=== PATIENT | female | born 1955 | race Caucasian/White ===

== ENCOUNTER → 2019-02-08 | Outpatient (CLI) | payer BC ==
--- NOTE | 2019-02-08 17:18 | CT ---
EXAMINATION TYPE: CT abdomen w con DATE OF EXAM: 02/08/2019 COMPARISON: 02/24/2010 HISTORY: abdominal pain CT DLP: 993 mGycm Automated exposure control for dose reduction was used. TECHNIQUE: Helical acquisition of images was performed from the lung bases through the top of iliac crest to include entire abdomen. CONTRAST: Performed with Oral Contrast and with IV Contrast, patient injected with 100 mL of Isovue 300. FINDINGS: There is dense calcification of the pericardium. Heart size is normal. Lung bases are clear of infilt rate. There is no pleural effusion. There is left side breast implant. Liver spleen pancreas gallbladder appear normal. Bile ducts are not dilated. There is no adrenal mass . Stomach appears normal. Kidneys show satisfactory contrast opacification. There is no hydronephrosi s. Ureters are not dilated. There is no retroperitoneal adenopathy. Appendix appears normal. There is no ascites. There is no mesenteric edema. There is no intestinal wall thickening. IMPRESSION: THERE IS DENSE PERICARDIAL CALCIFICATION AT HAS PROGRESSED COMPARED TO OLD CT SCAN. NO ACUTE ABNORMAL ITY WITHIN THE ABDOMEN AND PELVIS.
== END ==
LOC: RADCTMAIN 15:42
PROVIDERS: ATTEND Nurse Practitioner Family
DX: I31.1 Chronic constrictive pericarditis (principal)
CPT/HCPCS: 74160; Q9967

== ENCOUNTER → 2019-02-14 | Outpatient (CLI) | payer BC ==
--- NOTE | 2019-02-14 14:11 | US ---
EXAMINATION TYPE: US pelvic complete DATE OF EXAM: 02/14/2019 COMPARISON: CT CLINICAL HISTORY: R10.2 Pelvic Pain. Intermittent midline and lateral pelvic pain x 3 weeks; history of Breast CA; uterus and one ovary removed TECHNIQUE: Transabdominal (TA). Transabdominal sonographic images of the pelvis were acquired. EXAM MEASUREMENTS: Uterus: surgically removed Right Ovary: 3.0x 1.6 x1.7 cm Left Ovary: not seen/surgically absent 1. Right Ovary: wnl 2. Bladder: appears wnl; bilateral ureteral jets are seen; post void volume is wnl = 16.2ml 3. Bilateral Adnexa: overlying bowel gas is noted especially left lateral pelvis 4. Posterior cul-de-sac: wnl; no free fluid is seen in bilateral lower abdominal /pelvic quadrants. IMPRESSION: No free fluid in pelvic cul-de-sac. Normal appearing right ovary identified. No suspiciou s adnexal masses seen. Incidental fatty infiltration of liver towards end of study.
== END | disposition home or self-care (01) ==
LOC: RADUSWWP 13:19
PROVIDERS: ATTEND Internal Medicine
DX: R10.2 Pelvic and perineal pain (principal)
CPT/HCPCS: 76856

== ENCOUNTER → 2019-03-15 | Outpatient (CLI) | payer BC ==
--- NOTE | 2019-03-15 11:45 | NM ---
EXAMINATION TYPE: NM hepatobiliary w EF DATE OF EXAM: 03/15/2019 COMPARISON: CT abdomen February 08, 2019. HISTORY: Abdominal pain per order. Right upper quadrant pain for one month with diminished appetite, heartburn, reflux, diarrhea, and nausea and vomiting all per patient. TECHNIQUE: After the intravenous administration of 4.5 mCi Tc 99m Mebrofenin hepatobiliary scintigrap hy is performed. Immediate images post injection. FINDINGS: There is satisfactory initial accumulation of tracer by the liver. The gallbladder is visualized wit hin 10 minutes. The small bowel activity is noted within 25 minutes. At one hour 8 ounces of oral e nsure plus is given to mimic CCK and gallbladder ejection fraction is calculated at 84 %, not deviate d from the the normal range. Therefore there is no scintigraphic evidence of cystic or common bile d uct obstruction to suggest acute cholecystitis or gallbladder dyskinesia. IMPRESSION: Ejection fraction is 84%, not diminished from the normal range.
== END | disposition home or self-care (01) ==
LOC: RADNMMAIN 08:35
PROVIDERS: ATTEND Internal Medicine
DX: R10.9 Unspecified abdominal pain (principal)
CPT/HCPCS: 78226; A9537

== ENCOUNTER 2019-04-17 17:28 | Observation (INO) | payer BC ==
[2019-04-17] MEDS ORDERED: NITROGLYCERIN OINT 1 INCH/GM PACKET TOPICAL STA (18:26)
[2019-04-17] MEDS ORDERED: ASPIRIN 81 MG PO STA (18:26)
--- NOTE | 2019-04-17 18:35 | ED ---
General Adult HPI - General Chief complaint: Chest Pain Stated complaint: chest pain Time Seen by Provider: 04/17/19 17:40 Source: patient, RN notes reviewed Mode of arrival: ambulatory Limitations: no limitations - History of Present Illness Initial comments: This is a 63-year-old female presents emergency Department complaining of left- sided chest pain. Patient states it occurred twice yesterday each time lasting approximately 5 minutes.. Patient states it's just above her left breast. Patient states today the pain is a little worse and radiating to her armpit and her shoulder and neck area. She states again it's only lasting about 5 minutes per patient denies any shortness of breath or difficulty breathing. She denies any nausea or vomiting. Patient denies any diaphoretic episodes. Patient denies any lightheadedness or dizziness. Patient denies any headache patient denies numbness weakness per patient denies abdominal pain patient denies any recent fever chills or cough. Patient denies any swelling to her legs or calf tenderness. Patient states currently there is no pain patient is a diabetic and has high cholesterol. - Related Data Home Medications Medication Instructions Recorded Confirmed Dulaglutide [Trulicity] 1.5 mg SQ ACEVES 04/17/19 04/17/19 Rosuvastatin Calcium [Crestor] 40 mg PO HS 04/17/19 04/17/19 sitaGLIPtin PHOS/metFORMIN HCL 1 tab PO HS 04/17/19 04/17/19 [Janumet Xr 100-1,000 mg Tablet] Allergies Allergy/AdvReac Type Severity Reaction Status Date / Time hydromorphone HCl Allergy Hallucinati Verified 04/17/19 18:32 [From Dilaudid] ons codeine AdvReac Nausea Verified 04/17/19 18:32 TEGADERM Allergy Rash/Hives Uncoded 04/17/19 18:32 Review of Systems ROS Statement: Those systems with pertinent positive or pertinent negative responses have been documented in the HPI. ROS Other: All systems not noted in ROS Statement are negative. Past Medical History Past Medical History: Cancer, Diabetes Mellitus History of Any Multi-Drug Resistant Organisms: MRSA Date of last positivie culture/infection: 2011 MDRO Source:: ABDOMEN Past Surgical History: Breast Surgery, Hysterectomy Additional Past Surgical History / Comment(s): LEFT MASTECTOMY Past Psychological History: No Psychological Hx Reported Smoking Status: Former smoker General Exam - General Exam Comments Initial Comments: GENERAL: Patient is well-developed and well-nourished. Patient is nontoxic and well- hydrated and is in mild distress. ENT: Neck is soft and supple. No significant lymphadenopathy is noted. Oropharynx is clear. Moist mucous membranes. Neck has full range of motion without elici ting any pain. EYES: The sclera were anicteric and conjunctiva were pink and moist. Extraocular movements were intact and pupils were equal round and reactive to light. Eyelids were unremarkable. PULMONARY: Unlabored respirations. Good breath sounds bilaterally. No audible rales rhonchi or wheezing was noted. CARDIOVASCULAR: There is a regular rate and rhythm without any murmurs gallops or rubs. ABDOMEN: Soft and nontender with normal bowel sounds. No palpable organomegaly was noted . There is no palpable pulsatile mass. SKIN: Skin is clear with no lesions or rashes and otherwise unremarkable. NEUROLOGIC: Patient is alert and oriented x3. Cranial nerves II through XII are grossly intact. Motor and sensory are also intact. Normal speech, volume and content. Symmetrical smile. MUSCULOSKELETAL: Normal extremities with adequate strength and full range of motion. No lower extremity swelling or edema. No calf tenderness. LYMPHATICS: No significant lymphadenopathy is noted PSYCHIATRIC: Normal psychiatric evaluation. Limitations: no limitations Course Vital Signs 04/17/19 04/17/19 17:40 18:49 Temperature 98.2 F Pulse Rate 70 67 Respiratory 16 18 Rate Blood Pressure 162/93 160/83 O2 Sat by Pulse 98 98 Oximetry Medical Decision Making - Medical Decision Making EKG shows normal sinus rhythm at 67 bpm VT interval 170 QRS is 80 QT interval 408 QTC is 431 per patient's EKG shows no ST segment elevation or depression or T wave abnormalities are noted. Chest shows no acute abnormality. Patient continued to have intermittent chest pain in the emergency department last approximate 5 minutes. Rhythm strip showed no changes while patient was having the pain. I spoke with Dr. Newell he agreed to admit the patient admitted the patient I wrote admitting orders. I consult cardiology. - Lab Data Result diagrams: 04/17/19 18:44 04/17/19 18:44 Lab Results 04/17/19 04/17/19 04/17/19 Range/Units 18:44 18:44 18:44 WBC 8.7 (3.8-10.6) k/uL RBC 4.73 (3.80-5.40) m/uL Hgb 13.9 (11.4-16.0) gm/dL Hct 45.0 (34.0-46.0) % MCV 95.2 (80.0-100.0) fL MCH 29.5 (25.0-35.0) pg MCHC 31.0 (31.0-37.0) g/dL RDW 12.9 (11.5-15.5) % Plt Count 232 (150-450) k/uL Neutrophils % 57 % Lymphocytes % 30 % Monocytes % 6 % Eosinophils % 4 % Basophils % 1 % Neutrophils # 5.0 (1.3-7.7) k/uL Lymphocytes # 2.6 (1.0-4.8) k/uL Monocytes # 0.5 (0-1.0) k/uL Eosinophils # 0.4 (0-0.7) k/uL Basophils # 0.1 (0-0.2) k/uL PT 9.7 (9.0-12.0) sec INR 0.9 (<1.2) APTT 22.8 (22.0-30.0) sec Sodium 140 (137-145) mmol/L Potassium 4.0 (3.5-5.1) mmol/L Chloride 103 (98-107) mmol/L Carbon Dioxide 27 (22-30) mmol/L Anion Gap 10 mmol/L BUN 12 (7-17) mg/dL Creatinine 0.58 (0.52-1.04) mg/dL Est GFR (CKD-EPI)AfAm >90 (>60 ml/min/1.73 sqM) Est GFR (CKD-EPI)NonAf >90 (>60 ml/min/1.73 sqM) Glucose 114 H (74-99) mg/dL Calcium 10.2 (8.4-10.2) mg/dL Magnesium 2.2 (1.6-2.3) mg/dL Total Bilirubin 0.4 (0.2-1.3) mg/dL AST 34 (14-36) U/L ALT 45 (9-52) U/L Alkaline Phosphatase 105 (38-126) U/L Troponin I (0.000-0.034) ng/mL Total Protein 7.5 (6.3-8.2) g/dL Albumin 4.7 (3.5-5.0) g/dL 04/17/19 Range/Units 18:44 WBC (3.8-10.6) k/uL RBC (3.80-5.40) m/uL Hgb (11.4-16.0) gm/dL Hct (34.0-46.0) % MCV (80.0-100.0) fL MCH (25.0-35.0) pg MCHC (31.0-37.0) g/dL RDW (11.5-15.5) % Plt Count (150-450) k/uL Neutrophils % % Lymphocytes % % Monocytes % % Eosinophils % % Basophils % % Neutrophils # (1.3-7.7) k/uL Lymphocytes # (1.0-4.8) k/uL Monocytes # (0-1.0) k/uL Eosinophils # (0-0.7) k/uL Basophils # (0-0.2) k/uL PT (9.0-12.0) sec INR (<1.2) APTT (22.0-30.0) sec Sodium (137-145) mmol/L Potassium (3.5-5.1) mmol/L Chloride (98-107) mmol/L Carbon Dioxide (22-30) mmol/L Anion Gap mmol/L BUN (7-17) mg/dL Creatinine (0.52-1.04) mg/dL Est GFR (CKD-EPI)AfAm (>60 ml/min/1.73 sqM) Est GFR (CKD-EPI)NonAf (>60 ml/min/1.73 sqM) Glucose (74-99) mg/dL Calcium (8.4-10.2) mg/dL Magnesium (1.6-2.3) mg/dL Total Bilirubin (0.2-1.3) mg/dL AST (14-36) U/L ALT (9-52) U/L Alkaline Phosphatase (38-126) U/L Troponin I <0.012 (0.000-0.034) ng/mL Total Protein (6.3-8.2) g/dL Albumin (3.5-5.0) g/dL Disposition Clinical Impression: Chest pain Disposition: ADMITTED IP TO THIS [facility] Referrals: Heather Newell MD [Primary Care Provider] - 1-2 days Time of Disposition: 19:31
[2019-04-17 18:57] LABS: Basophils # (A) 0.1 k/uL (0-0.2); Basophils % (A) 1 %; Eosinophils # (A) 0.4 k/uL (0-0.7); Eosinophils % (A) 4 %; HGB 13.9 gm/dL (11.4-16.0); Lymphocytes # (A) 2.6 k/uL (1.0-4.8); Lymphocytes % (A) 30 %; MCH 29.5 pg (25.0-35.0); MCV 95.2 fL (80.0-100.0); Mean Platelet Volume 8.2; Monocytes # (A) 0.5 k/uL (0-1.0); Monocytes % (A) 6 %; Neutrophils % (A) 57 %; Platelet Count 232 k/uL (150-450); RBC 4.73 m/uL (3.80-5.40); RDW 12.9 % (11.5-15.5); WBC 8.7 k/uL (3.8-10.6)
[2019-04-17 19:10] LABS: INR 0.9 (<1.2); Partial Thromboplastin Time 22.8 sec (22.0-30.0); Prothrombin Time 9.7 sec (9.0-12.0)
[2019-04-17 19:14] LABS: ALT 45 U/L (9-52); AST 34 U/L (14-36); African American GFR (CKD) >90 (>60 ml/min/1.73 sqM); Albumin 4.7 g/dL (3.5-5.0); Alkaline Phosphatase 105 U/L (38-126); Anion Gap 10 mmol/L; Blood Urea Nitrogen 12 mg/dL (7-17); Calcium 10.2 mg/dL (8.4-10.2); Carbon Dioxide 27 mmol/L (22-30); Chloride 103 mmol/L (98-107); Glucose 114 mg/dL (74-99); Magnesium 2.2 mg/dL (1.6-2.3); Sodium 140 mmol/L (137-145); Total Bilirubin 0.4 mg/dL (0.2-1.3); Total Protein 7.5 g/dL (6.3-8.2)
[2019-04-17] MEDS ORDERED: NITROGLYCERIN SL TABS 0.4 MG TAB SUBLINGUAL PRN (19:32)
--- NOTE | 2019-04-17 20:03 | XR ---
EXAMINATION TYPE: XR chest 2V DATE OF EXAM: 04/17/2019 COMPARISON: 12/08/2011 INDICATION: Chest pain TECHNIQUE: Frontal and lateral views of the chest are obtained. FINDINGS: The heart size is normal. The pulmonary vasculature is normal. The lungs are clear. Some pericardial calcification may remain present. IMPRESSION: 1. No acute pulmonary process.
[2019-04-18] MEDS: NITROGLYCERIN OINT 1 INCH/GM PACKET TOPICAL SCH ×5 (01:28→23:10)
[2019-04-18 08:02] LABS: Cholesterol 196 mg/dL (<200); HDL Cholesterol 81 mg/dL (40-60); LDL Cholesterol,Calculated 75 mg/dL (0-99); Triglycerides 201 mg/dL (<150)
[2019-04-18] MEDS ORDERED: ASPIRIN 325 MG TAB PO SCH (09:00)
[2019-04-18] MEDS ORDERED: AMINOPHYLLINE 500 MG/20 ML VIAL IV PRN ×2 (09:02→09:58)
[2019-04-18] MEDS ORDERED: CAFFEINE CITRATE 60 MG/3 ML VIAL IV PRN ×2 (09:02→09:58)
[2019-04-18] MEDS ORDERED: DIPYRIDAMOLE IV ONE ×2 (09:30→09:58)
[2019-04-18] MEDS ORDERED: DOBUTamine DRIP for NUC MED 500 MG in DEXTROSE/WATER 1 250ML.BAG IV ONE (09:30)
[2019-04-18] MEDS ORDERED: SODIUM CHLORIDE 0.9% IV ONE ×2 (09:30→09:58)
[2019-04-18 11:17] LABS: Glucose,Whole Blood 134 mg/dL (75-99)
[2019-04-18] MEDS: INSULIN ASPART (NovoLOG) 100 UNIT/ML VIAL SQ SCH ×3 (12:23→20:32)
[2019-04-18 13:07] VITALS: RESP 18
--- NOTE | 2019-04-18 13:49 | P.CRDCN ---
History of Present Illness History of present illness: This is a pleasant 63-year-old female past medical history significant for diabetes mellitus, dyslipidemia, breast cancer status post mastectomy and implantation. She denies prior history of coronary artery disease. She has seen Dr. Kathleen in the past and undergone stress testing and echocardiogram in 2016, both Lexiscan stress test and echocardiogram are normal with no evidence of reversible ischemia and normal LV systolic function. We have been asked to see her in consultation secondary to chest discomfort. She has been experiencing a burning sensation in the midsternal region since Wednesday. At times the discomfort radiates to the left precordial region to the left axilla and the left shoulder. There is no discomfort in the arm, neck or jaw. Initially this lasted for about 5 minutes and then slowly seemed to subside on its own. Was not associated with activity or exertion. It is not related to deep inspiration. Then again yesterday she had a similar type symptom prompting her to come to the hospital for further evaluation. Seen and examined sitting up on the stretcher in the emergency department in no acute distress. She has had no further symptoms of chest discomfort. EKG reveals sinus mechanism nonspecific flattened T waves with no acute ST meng ges. Chest x-ray is negative for an acute cardiopulmonary process. Laboratory data reviewed, CBC unremarkable, sodium 140, potassium 4.0, creatinine 0.58 with a GFR greater than 90, cardiac enzymes negative 3, LDL 75. Current cardiac medications include rosuvastatin 40 mg daily. At the time of my exam: CONSTITUTIONAL: Denies fever. Denies chills. EYES: Denies blurred vision. Denies vision changes. Denies eye pain. EARS, NOSE, MOUTH & THROAT: Denies headache. Denies sore throat. Denies ear pain . CARDIOVASCULAR: Denies chest pain. Denies shortness of breath. Denies orthopnea. Denies PND. Denies palpitations. RESPIRATORY: Denies cough. GASTROINTESTINAL: Denies abdominal pain. Denies diarrhea. Denies constipation. Denies nausea. Denies vomiting. MUSCULOSKELETAL: Denies myalgias. INTEGUMENTARY: Denies pruitis. Denies rash. NEUROLOGIC: Denies numbness. Denies tingling. Denies weakness. PSYCHIATRIC: Denies anxiety. Denies depression. ENDOCRINE: Denies fatigue. Denies weight change. Denies polydipsia. Denies polyurina. GENITOURINARY: Denies burning, hematuria or urgency with micturation. HEMATOLOGIC: Denies history of anemia. Denies bleeding. Blood pressure 135/74 heart rate 71 afebrile maintaining oxygen saturation on room air. GENERAL: This is a 63-year-old female in no apparent distress at the time of my examination. HEENT: Head is atraumatic, normocephalic. Pupils are equal, round. Sclerae anicteric. Conjunctivae are clear. Mucous membranes of the mouth are moist. Neck is supple. There is no jugular venous distention. No carotid bruit is heard. LUNGS: Clear to auscultation no wheezes, rales or rhonchi. No chest wall tenderness is noted on palpation or with deep breathing. HEART: Regular rate and rhythm without murmurs, rubs or gallops. S1 and S2 heard. ABDOMEN: Soft, nontender. Bowel sounds are heard. No organomegaly noted. EXTREMITIES: No evidence of peripheral edema and no calf tenderness noted. VASCULAR: Radial and dorsalis pedis pulses palpated, no evidence of clubbing. NEUROLOGIC: Patient is awake, alert and oriented x3. ASSESSMENT Precordial chest pain. An acute coronary event has been ruled out. Diabetes mellitus Dyslipidemia History of breast cancer status post mastectomy and implant PLAN An acute coronary event has been ruled out. Given her symptoms and risk factors we recommend inpatient stress testing. Recommend proceeding with Persantine stress test to assess for reversible cardiac ischemia, unfortunately she was given coffee this morning cannot have the study done today. She is not a candidate for dobutamine stress echocar diogram secondary to mastectomy and implantation. 2-D echocardiogram has been obtained and study was limited secondary to mastectomy/implant. Further recommendations to follow. Thank you kindly for this consultation. Nurse Practitioner note has been reviewed, I agree with a documented findings and plan of care. Patient was seen and examined. Past Medical History Past Medical History: Cancer, Diabetes Mellitus History of Any Multi-Drug Resistant Organisms: MRSA Date of last positivie culture/infection: 2011 MDRO Source:: ABDOMEN Past Surgical History: Breast Surgery, Hysterectomy Additional Past Surgical History / Comment(s): LEFT MASTECTOMY Past Psychological History: No Psychological Hx Reported Smoking Status: Former smoker Medications and Allergies Home Medications Medication Instructions Recorded Confirmed Type Dulaglutide [Trulicity] 1.5 mg SQ ACEVES 04/17/19 04/17/19 History Rosuvastatin Calcium [Crestor] 40 mg PO HS 04/17/19 04/17/19 History sitaGLIPtin PHOS/metFORMIN HCL 1 tab PO HS 04/17/19 04/17/19 History [Janumet Xr 100-1,000 mg Tablet] Allergies Allergy/AdvReac Type Severity Reaction Status Date / Time hydromorphone HCl Allergy Hallucinati Verified 04/17/19 18:32 [From Dilaudid] ons codeine AdvReac Nausea Verified 04/17/19 18:32 TEGADERM Allergy Rash/Hives Uncoded 04/17/19 18:32 Physical Exam Vitals: Vital Signs Temp Pulse Pulse Resp BP BP Pulse Ox 04/18/19 13:05 97.5 F L 71 18 135/74 97 04/18/19 06:54 98.2 F 75 20 147/81 98 04/18/19 01:12 98.0 F 68 18 116/82 98 04/17/19 22:42 70 18 127/74 98 04/17/19 20:06 64 18 130/74 98 04/17/19 18:49 67 18 160/83 98 04/17/19 17:40 98.2 F 70 16 162/93 98 Intake and Output 04/17/19 04/18/19 04/18/19 22:59 06:59 14:59 Other: Weight 66.678 kg Results 04/17/19 18:44 04/17/19 18:44 Cardiac Enzymes 04/17/19 04/17/19 04/18/19 Range/Units 18:44 18:44 00:21 AST 34 (14-36) U/L Troponin I <0.012 <0.012 (0.000-0.034) ng/mL 04/18/19 Range/Units 07:13 AST (14-36) U/L Troponin I <0.012 (0.000-0.034) ng/mL Coagulation 04/17/19 Range/Units 18:44 PT 9.7 (9.0-12.0) sec APTT 22.8 (22.0-30.0) sec Lipids 04/18/19 Range/Units 07:13 Triglycerides 201 H (<150) mg/dL Cholesterol 196 (<200) mg/dL HDL Cholesterol 81 H (40-60) mg/dL CBC 04/17/19 Range/Units 18:44 WBC 8.7 (3.8-10.6) k/uL RBC 4.73 (3.80-5.40) m/uL Hgb 13.9 (11.4-16.0) gm/dL Hct 45.0 (34.0-46.0) % Plt Count 232 (150-450) k/uL Comprehensive Metabolic Panel 04/17/19 Range/Units 18:44 Sodium 140 (137-145) mmol/L Potassium 4.0 (3.5-5.1) mmol/L Chloride 103 (98-107) mmol/L Carbon Dioxide 27 (22-30) mmol/L BUN 12 (7-17) mg/dL Creatinine 0.58 (0.52-1.04) mg/dL Glucose 114 H (74-99) mg/dL Calcium 10.2 (8.4-10.2) mg/dL AST 34 (14-36) U/L ALT 45 (9-52) U/L Alkaline Phosphatase 105 (38-126) U/L Total Protein 7.5 (6.3-8.2) g/dL Albumin 4.7 (3.5-5.0) g/dL Current Medications Generic Name Dose Route Start Last Admin Trade Name Freq PRN Reason Stop Dose Admin Aminophylline 100 mg 04/18/19 09:58 Aminophylline IV 05/18/19 09:59 ONCE PRN Patient Response Aspirin 81 mg 04/19/19 09:00 Aspirin PO DAILY [facility] Atorvastatin Calcium 80 mg 04/18/19 21:00 Lipitor PO HS [facility] Caffeine Citrate 60 mg 04/18/19 09:58 Cafcit Inj IV 05/18/19 09:59 ONCE PRN Patient Response Dipyridamole 38 mg/ Sodium 50 mls @ 750 mls/hr 04/19/19 06:00 Chloride IV 04/19/19 06:03 ONCE ONE Insulin Aspart 0 unit 04/18/19 12:30 04/18/19 12:23 Novolog SQ Not Given ACHS [facility] Protocol Linagliptin 5 mg 04/19/19 09:00 Tradjenta PO DAILY [facility] Nitroglycerin 0.4 mg 04/17/19 19:32 Nitrostat SUBLINGUAL Q5M PRN Chest Pain Nitroglycerin 1 inch 04/18/19 00:00 04/18/19 06:53 Nitro-Bid Oint TOPICAL 1 inch Q6HR DUONG Administration Intake and Output 04/17/19 04/18/19 04/18/19 22:59 06:59 14:59 Other: Weight 66.678 kg 04/17/19 18:44 04/17/19 18:44
[2019-04-18 14:02] VITALS: BMI 28.7
--- NOTE | 2019-04-18 16:07 | P.HPIM ---
History of Present Illness H&P Date: 04/18/19 Chief Complaint: Chest pain This is a 63-year-old female patient of Dr. Newell with past medical history of diabetes mellitus type 2, hyperlipidemia, left breast cancer status post mastectomy 8 years ago without chemo therapy/radiation therapy. Patient states that she had onset on Wednesday of heartburn. She woke up with this and then developed later in the day fluttering feelings. She had a burning and tightness in the left upper chest wall and thought it was due to vacuuming. It was intermittent but continued into Wednesday. She called the office it was after hours and she called her who told her to come into the hospital for evaluation. She hasn't had a stress test [address] Kathleen that was reported normal. Patient gives history of having trouble with Trulicity due to a rash and was switched to insulin however she gained 30 pounds with the insulin and did not want to continue it. She has been resumed back on [facility] but now rash has returned. Also she has had elevated pancreatic numbers in the office which are being monitored. Since midnight she has had no chest pain. She thinks it may be related to the Nitropaste but is not sure. Patient does have partial implant and partial muscle transplant from her abdomen for left breast reconstruction which she feels has been giving her some trouble and pain in the left chest area. Troponins negative on 3 draws. Triglycerides 201, cholesterol 196, LDL 75 and HDL 81. Patient has been seen by cardiology and echocardiogram has been done and patient scheduled for nuclear stress test for tomorrow. Review of Systems Constitutional: Reports fatigue, Denies chills, Denies fever, Denies lethargy, Denies malaise, Denies poor appetite Eyes: denies blurred vision, denies pain Ears, nose, mouth and throat: Reports vertigo, Denies dysphagia, Denies headache, Denies nasal congestion, Denies nasal discharge, Denies sore throat Cardiovascular: Reports chest pain, Denies decreased exercise tolerance, Denies dyspnea on exertion, Denies edema, Denies leg edema, Denies lightheadedness, Denies shortness of breath, Denies syncope Respiratory: Denies cough, Denies cough with sputum, Denies dyspnea, Denies excessive sputum, Denies hemoptysis, Denies home oxygen, Denies respiratory infections, Denies sleep apnea, Denies wheezing Gastrointestinal: Denies abdominal pain, Denies belching, Denies bloating, Denies diarrhea, Denies loss of appetite, Denies nausea, Denies vomiting Genitourinary: Denies dysuria, Denies hematuria, Denies urgency, Denies urinary frequency Musculoskeletal: Denies frequent falls, Denies gait dysfunction, Denies muscle weakness, Denies myalgias Integumentary: Reports rash, Denies pruritus, Denies wounds Neurological: Denies change in mentation, Denies confusion, Denies numbness, Denies weakness Psychiatric: Denies anxiety, Denies confusion, Denies depression Endocrine: Denies fatigue, Denies weight change Past Medical History Past Medical History: Cancer, Diabetes Mellitus History of Any Multi-Drug Resistant Organisms: MRSA Date of last positivie culture/infection: 2011 MDRO Source:: ABDOMEN Past Surgical History: Breast Surgery, Hysterectomy Additional Past Surgical History / Comment(s): LEFT MASTECTOMY, history for abnormal bleeding, 3 hernia repairs Past Psychological History: No Psychological Hx Reported Smoking Status: Former smoker Additional Past Alcohol Use History / Comment(s): Patient was a smoker of less than one pack per day for 10 years and quit 15 years ago. She denies any marijuana or illicit drug use. She drinks alcohol socially. She lives at home with her . She works in [employer]. - Past Family History Father Family Medical History: Diabetes Mellitus, Myocardial Infarction (PA) Additional Family Medical History / Comment(s): Father of a PA in his 70s. Mother Family Medical History: No Reported History Additional Family Medical History / Comment(s): Mother is 85 years old with history of thyroid cancer. Her mother and aunt both had breast cancer. Brother(s) Additional Family Medical History / Comment(s): Patient has 4 brothers and one has diabetes. Patient has 4 sisters and one has history of thyroid cancer. Patient has one daughter who is . Medications and Allergies Home Medications Medication Instructions Recorded Confirmed Type Dulaglutide [Trulicity] 1.5 mg SQ ACEVES 04/17/19 04/17/19 History Rosuvastatin Calcium [Crestor] 40 mg PO HS 04/17/19 04/17/19 History sitaGLIPtin PHOS/metFORMIN HCL 1 tab PO HS 04/17/19 04/17/19 History [Janumet Xr 100-1,000 mg Tablet] Allergies Allergy/AdvReac Type Severity Reaction Status Date / Time hydromorphone HCl Allergy Hallucinati Verified 04/17/19 18:32 [From Dilaudid] ons codeine AdvReac Nausea Verified 04/17/19 18:32 TEGADERM Allergy Rash/Hives Uncoded 04/17/19 18:32 Physical Exam Vitals: Vital Signs Temp Pulse Pulse Resp BP BP Pulse Ox 04/18/19 13:05 97.5 F L 71 18 135/74 97 04/18/19 06:54 98.2 F 75 20 147/81 98 04/18/19 01:12 98.0 F 68 18 116/82 98 04/17/19 22:42 70 18 127/74 98 04/17/19 20:06 64 18 130/74 98 04/17/19 18:49 67 18 160/83 98 04/17/19 17:40 98.2 F 70 16 162/93 98 Intake and Output 04/17/19 04/18/19 04/18/19 22:59 06:59 14:59 Other: Weight 66.678 kg This Gen: This is a 63-year-old female. She is resting in the ER stretcher and appears to be comfortable. HEENT: Head is atraumatic, normocephalic. Pupils equal, round. Sclerae is anicteric. NECK: Supple. No JVD. No lymphadenopathy. No thyromegaly. LUNGS: Clear to auscultation. No wheezes or rhonchi. No intercostal retractions. HEART: Regular rate and rhythm. No murmur. ABDOMEN: Soft. Bowel sounds are present. No masses. No tenderness. EXTREMITIES: No pedal edema. No calf tenderness. Dorsalis pedis +2 bilaterally. NEUROLOGICAL: Patient is awake, alert and oriented x3. Cranial nerves 2 through 12 are grossly intact. Results CBC & Chem 7: 04/17/19 18:44 04/17/19 18:44 Labs: Abnormal Lab Results - Last 24 Hours (Table) 04/17/19 04/18/19 04/18/19 Range/Units 18:44 07:13 11:15 Glucose 114 H (74-99) mg/dL POC Glucose (mg/dL) 134 H (75-99) mg/dL Triglycerides 201 H (<150) mg/dL HDL Cholesterol 81 H (40-60) mg/dL Assessment and Plan Plan: 1. Chest pain with negative troponins. Patient is scheduled for nuclear stress test tomorrow. Continue aspirin 81 mg daily, statin. 2. Diabetes mellitus type 2. Continue NovoLog scale and Tradjenta. 3. Hyperlipidemia. Continue statin. Patient placed on the observation unit. Discharge plan: Home Impression and plan of care have been directed as dictated by the signing physician. Kiana Love nurse practitioner acting as scribe for signing physician.
[2019-04-18 16:28] LABS: Glucose,Whole Blood 234 mg/dL (75-99)
--- NOTE | 2019-04-18 18:01 | ECHOF ---
Referral Reason:cp MEASUREMENTS -------- HEIGHT: 152.4 cm WEIGHT: 66.7 kg BP: RVIDd: 2.6 cm (< 3.3) IVSd: 0.8 cm (0.6 - 1.1) LVIDd: 3.5 cm (3.9 - 5.3) LVPWd: 1.5 cm (0.6 - 1.1) IVSs: 1.2 cm LVIDs: 3.0 cm LVPWs: 1.2 cm Ao Diam: 2.5 cm (2.0 - 3.7) AV Cusp: 1.7 cm (1.5 - 2.6) LA Diam: 4.1 cm (2.7 - 3.8) MV EXCURSION: 13.536 mm (> 18.000) MV EF SLOPE: 69 mm/s (70 - 150) EPSS: 0.7 cm MV E Jim: 0.40 m/s MV DecT: 132 ms MV A Jim: 0.47 m/s MV E/A Ratio: 0.84 RAP: 5.00 mmHg RVSP: 11.24 mmHg FINDINGS -------- Sinus rhythm. Pt. Has Breast inplants This was a techncally difficult study with suboptimal views, , Lumason utilized for enhancement of im ages. The left ventricular size is normal. Overall left ventricular systolic function is low-normal with, an EF between 50 - 55 %. The right ventricle is normal in size. The left atrial size is normal. The right atrial size is normal. 5.0mg OF Lumason UTLIZED: 2 OR MORE WALL SEGMENTS NOT VISUALIZED. The aortic valve is trileaflet, and appears structurally normal. No aortic stenosis or regurgitation. No mitral regurgitation. Mild tricuspid regurgitation present. Right ventricular systolic pressure is normal at < 35 mmHg. There is no evidence of pulmonary hypertension. The pulmonic valve was not well visualized. There is no pericardial effusion. CONCLUSIONS -------- 1. Sinus rhythm. 2. Pt. Has Breast inplants 3. This was a techncally difficult study with suboptimal views, , Lumason utilized for enhancement of images. 4. The left ventricular size is normal. 5. Overall left ventricular systolic function is low-normal with, an EF between 50 - 55 %. 6. The right ventricle is normal in size. 7. The left atrial size is normal. 8. The right atrial size is normal. 9. 5.0mg OF Lumason UTLIZED: 2 OR MORE WALL SEGMENTS NOT VISUALIZED. 10. The aortic valve is trileaflet, and appears structurally normal. No aortic stenosis or regurgitat ion. 11. No mitral regurgitation. 12. Mild tricuspid regurgitation present. 13. Right ventricular systolic pressure is normal at < 35 mmHg. 14. There is no evidence of pulmonary hypertension. 15. The pulmonic valve was not well visualized. 16. There is no pericardial effusion. CHICK GRADER: Sharon Fontaine RDCS
[2019-04-18 20:28] LABS: Glucose,Whole Blood 256 mg/dL (75-99)
[2019-04-18] MEDS ORDERED: ATORVASTATIN 80 MG TAB PO SCH (21:00)
[2019-04-19] MEDS ORDERED: SODIUM CHLORIDE 0.9% IV ONE ×2 (06:00→09:30)
[2019-04-19] MEDS ORDERED: DIPYRIDAMOLE IV ONE ×2 (06:00→09:30)
[2019-04-19] MEDS: NITROGLYCERIN OINT 1 INCH/GM PACKET TOPICAL SCH ×2 (06:12→12:48)
[2019-04-19 07:00] LABS: Glucose,Whole Blood 205 mg/dL (75-99)
[2019-04-19] MEDS ORDERED: ASPIRIN 81 MG PO SCH (09:00)
[2019-04-19] MEDS ORDERED: LINAGLIPTIN 5 MG TABLET PO SCH (09:00)
[2019-04-19] MEDS: INSULIN ASPART (NovoLOG) 100 UNIT/ML VIAL SQ SCH ×2 (11:17→12:49)
[2019-04-19] MEDS ORDERED: ACETAMINOPHEN TAB 325 MG TAB PO STA (11:22)
[2019-04-19 11:28] LABS: Glucose,Whole Blood 166 mg/dL (75-99)
--- NOTE | 2019-04-19 11:43 | P.STRESS ---
- Stress Test Note Stress Test Results/Findings: Exam Performed: NM stress persantine cardiolite Exam Date: 04/19/19 Reason for Exam: CHEST PAIN Height: 5 ft Weight: 66.678 kg Protocol: PERSANTINE CARDIOLITE Stage: N/A Duration of Exercise: N/A Resting Heart Rate: 63 Resting Blood Pressure: 149/78 Maximum Achieved Heart Rate: 74 Maximum Achieved Blood Pressure: 149/78 85% PMHR: N/A 100% PMHR: N/A METS: N/A Technologist Comment: Stress Test Results/Findings: This is a 63-year-old female with history of diabetes, hypercholesterolemia and smoking history, being evaluated for symptoms of chest pain, shortness of breath and palpitations. Stress data: Baseline EKG showed sinus rhythm with normal PA interval and QRS duration, and nonspecific ST-T abnormalities. Blood pressure at rest is 149/78, pulse rate of 63. A standard dose of Persantine was infused EKGs did not reveal significant changes from the baseline. Final impression: #1. Nondiagnostic Persantine stress test because of baseline EKG mollities. #2. A report on the nuclear images to be good by the radiologist.
--- NOTE | 2019-04-19 11:51 | NM ---
EXAMINATION TYPE: NM stress persantine cardiolite DATE OF EXAM: 04/19/2019 COMPARISON: NONE HISTORY: History of hypercholesteremia along with tobacco use quit 15 years ago and history of diabet es presents with chest pain difficult in breathing and palpitations TECHNIQUE: After the intravenous administration of 10.7 mCi Tc 99m Sestamibi - Cardiolite resting SP ECT images acquired 45 minutes post injection. The patient received 38.0 mg Persantine, 26.7 mCi Tc 99m Sestamibi - Stress images obtained 30 minute s post injection FINDINGS: Review of stress and rest SPECT images demonstrates no distinct perfusion abnormality. Gated analysi s shows normal wall motion with an estimated left ventricular ejection fraction of 64 %. IMPRESSION: No scintigraphic evidence for reversible ischemia.
[2019-04-19 12:16] VITALS: BP 123/60; PULSE 66; TEMP 98.2
--- NOTE | 2019-04-19 16:22 | P.DS ---
Providers Date of admission: 04/17/19 19:32 Expected date of discharge: 04/19/19 Attending physician: Heather Newell Consults: 04/17/19 19:32 Consult Physician Urgent Consulting Provider: [facility] Consult Reason/Comments: Chest pain Do you want consulting provider notified?: Yes Primary care physician: Heather Newell Hospital Course: This is a 63-year-old female patient of Dr. Newell with past medical history of diabetes mellitus type 2, hyperlipidemia, left breast cancer status post mastectomy 8 years ago without chemo therapy/radiation therapy. Patient s tates that she had onset on Wednesday of heartburn. She woke up with this and then developed later in the day fluttering feelings. She had a burning and tightness in the left upper chest wall and thought it was due to vacuuming. It was intermittent but continued into Wednesday. She called the office it was after hours and she called her who told her to come into the hospital for evaluation. She hasn't had a stress test [address] Kathleen that was reported normal. Patient gives history of having trouble with Trulicity due to a rash and was switched to insulin however she gained 30 pounds with the insulin and did not want to continue it. She has been resumed back on [facility] but now rash has returned. Also she has had elevated pancreatic numbers in the office which are being monitored. Since midnight she has had no chest pain. She thinks it may be related to the Nitropaste but is not sure. Patient does have partial implant and partial muscle transplant from her abdomen for left breast reconstruction which she feels has been giving her some trouble and pain in the left chest area. Troponins negative on 3 draws. Triglycerides 201, cholesterol 196, LDL 75 and HDL 81. Patient has been seen by cardiology and echocardiogram has been done and patient scheduled for nuclear stress test for tomorrow. 04/19: Echocardiogram revealed EF of 50-55%. Technically difficult study with suboptimal views. Mild tricuspid regurgitation, no pulmonary hypertension. Persantine stress test was negative. Patient was cleared for discharge by cardiology. Patient discharged home in stable condition. For now, patient will continue same home medications and follow-up with Dr. Newell regarding any changes to her diabetic medications. Discharge diagnoses: 1. Chest pain with negative troponins. 2. Diabetes mellitus type 2. 3. Hyperlipidemia. Discharge plan: Home Impression and plan of care have been directed as dictated by the signing physician. Kiana Love nurse practitioner acting as scribe for signing physician. Patient Condition at Discharge: Good Plan - Discharge Summary Discharge Rx Participant: No New Discharge Prescriptions: New Aspirin 81 mg PO DAILY chew Continue sitaGLIPtin PHOS/metFORMIN HCL [Janumet Xr 100-1,000 mg Tablet] 1 tab PO HS Rosuvastatin Calcium [Crestor] 40 mg PO HS Dulaglutide [Trulicity] 1.5 mg SQ ACEVES Discharge Medication List Dulaglutide [Trulicity] 1.5 mg SQ ACEVES 04/17/19 [History] Rosuvastatin Calcium [Crestor] 40 mg PO HS 04/17/19 [History] sitaGLIPtin PHOS/metFORMIN HCL [Janumet Xr 100-1,000 mg Tablet] 1 tab PO HS 04/17/19 [History] Aspirin 81 mg PO DAILY chew 04/19/19 [Rx] Follow up Appointment(s)/Referral(s): Heather Newell MD [Primary Care Provider] - 1 Week Discharge Disposition: HOME SELF-CARE
--- NOTE | 2019-04-21 11:59 | EST ---
- Stress Test Note Stress Test Results/Findings: Exam Performed: NM stress persantine cardiolite Exam Date: 04/19/19 Reason for Exam: CHEST PAIN Height: 5 ft Weight: 66.678 kg Protocol: PERSANTINE CARDIOLITE Stage: N/A Duration of Exercise: N/A Resting Heart Rate: 63 Resting Blood Pressure: 149/78 Maximum Achieved Heart Rate: 74 Maximum Achieved Blood Pressure: 149/78 85% PMHR: N/A 100% PMHR: N/A METS: N/A Technologist Comment: Stress Test Results/Findings: This is a 63-year-old female with history of diabetes, hypercholesterolemia and smoking history, being evaluated for symptoms of chest pain, shortness of breath and palpitations. Stress data: Baseline EKG showed sinus rhythm with normal MI interval and QRS duration, and nonspecific ST-T abnormalities. Blood pressure at rest is 149/78, pulse rate of 63. A standard dose of Persantine was infused EKGs did not reveal significant changes from the baseline. Final impression: #1. Nondiagnostic Persantine stress test because of baseline EKG mollities. #2. A report on the nuclear images to be good by the radiologist. ERICK
== END 2019-04-19 14:09 | disposition home or self-care (01) ==
LOC: EC 17:28 → 1SOBS 19:32
PROVIDERS: ADMIT Internal Medicine; ATTEND Internal Medicine
DX: R07.89 Other chest pain (principal); R07.2 Precordial pain; E11.9 Type 2 diabetes mellitus without complications; I07.1 Rheumatic tricuspid insufficiency; R79.89 Other specified abnormal findings of blood chemistry; E78.5 Hyperlipidemia, unspecified; E78.00 Pure hypercholesterolemia, unspecified; Z79.899 Other long term (current) drug therapy; Z87.891 Personal history of nicotine dependence; Z85.3 Personal history of malignant neoplasm of breast; Z98.82 Breast implant status; Z92.21 Personal history of antineoplastic chemotherapy; Z92.3 Personal history of irradiation; Z86.19 Personal history of other infectious and parasitic diseases; Z87.19 Personal history of other diseases of the digestive system; Z90.710 Acquired absence of both cervix and uterus; Z90.12 Acquired absence of left breast and nipple; Z98.890 Other specified postprocedural states; Z88.5 Allergy status to narcotic agent; Z91.048 Other nonmedicinal substance allergy status; Z82.49 Family history of ischemic heart disease and other diseases of the circulatory system; Z83.3 Family history of diabetes mellitus; Z80.8 Family history of malignant neoplasm of other organs or systems; Z80.3 Family history of malignant neoplasm of breast
CPT/HCPCS: 99285; 36415; 93005 ×2; 93017; 93306; 80061; 80053; 83735; 84484 ×2; 85025; 85610; 85730; 71046; 78452; G0378 ×3; A9500; J1250; J1245 ×2; Q9950

== ENCOUNTER → 2020-01-05 | Outpatient (CLI) | payer BC ==
--- NOTE | 2020-01-05 12:49 | CT ---
EXAMINATION TYPE: CT abdomen pelvis w con DATE OF EXAM: 01/05/2020 COMPARISON: 02/08/2019 HISTORY: epigastric pain, acute diverticulitis CT DLP: 616.5 mGycm Automated exposure control for dose reduction was used. CONTRAST: CT scan of the abdomen pelvis is performed with IV Contrast, patient injected with 100 mL of Isovue 3 00. FINDINGS- LUNG BASES-pericardial calcifications are seen which can be associated with constrictive pericarditis . Correlate clinically. Rest implant surgery noted.. LIVER/GB-correlate for hepatic steatosis. No gallstones.. PANCREAS- No gross abnormality is seen. SPLEEN- No gross abnormality is seen. ADRENALS- No gross abnormality is seen. KIDNEYS/BLADDER- no hydronephrosis, nephrolithiasis or renal mass. However, there is asymmetric wall thickening involving the anterior and right lateral margin of the bladder. Recommend urological consu ltation. Although this could be associated with cystitis and bladder neoplasm not excluded. BOWEL-bowel gas pattern nonspecific with retained fecal debris. No diagnostic evidence of obstructive pattern. Appendix normal. Stomach is nondistended and is mild wall thickening of the gastric antrum. . LYMPH NODES- No greater than 1cm abdominal or pelvic lymph nodes areappreciated. OSSEOUS STRUCTURES-hypertrophic and degenerative changes of the spine. Multilevel facet arthropathy. OTHER- soft tissue nodule in the right adnexa likely related to a residual ovary with evidence of pr evious hysterectomy this appears present on prior exam of 02/24/2010. Appears to be postsurgical bowen e involving the anterior abdominal wall right lower pelvis correlate clinically. Aorta of normal caliber. Atherosclerotic change of aorta and its side branches. No free fluid or free air. IMPRESSION- 1. No evidence of pancreatitis. Mild wall thickening of the gastric antrum most likely related to inc omplete distention. If there is concern for right upper quadrant pain or peptic ulcer disease\gastrit is correlate with direct visualization as clinically warranted. 2. Asymmetric bladder wall thickening as discussed above differential diagnosis includes bladder neop lasm as well as cystitis recommend urological consultation. 3. Pericardial calcification can be associated with constrictive pericarditis correlate clinically. 4. Correlate for hepatic steatosis
== END | disposition home or self-care (01) ==
LOC: RADCTMAIN 10:38
PROVIDERS: ATTEND Internal Medicine
DX: K31.89 Other diseases of stomach and duodenum (principal); N32.89 Other specified disorders of bladder
CPT/HCPCS: 74177; Q9967

== ENCOUNTER 2020-02-16 06:18 | Day surgery (SDC) | payer BC ==
[2020-02-14 15:34] VITALS: BMI 27.3
[2020-02-16] MEDS ORDERED: LACTATED RINGERS 1,000 ML IV SCH (06:23)
[2020-02-16] MEDS ORDERED: LIDOCAINE 1% (10MG/ML) FOR IV START INTRADERMA ONE (06:50)
[2020-02-16 06:59] LABS: Glucose,Whole Blood 154 mg/dL (75-99)
[2020-02-16] MEDS ORDERED: ONDANSETRON 4 MG/2 ML VIAL ONE (06:59)
[2020-02-16] MEDS ORDERED: ONDANSETRON 4 MG/2 ML VIAL IVP ONE (07:02)
[2020-02-16 07:03] VITALS: RESP 16; TEMP 97.4
[2020-02-16] MEDS ORDERED: LIDOCAINE 1% INJ 10MG/ML (20 ML MDV) ONE (07:07)
[2020-02-16] MEDS ORDERED: fentaNYL (PF) 50 MCG/ML 2 ML AMP ONE (07:07)
[2020-02-16] MEDS ORDERED: MIDAZOLAM 2 MG/2 ML VIAL ONE (07:07)
[2020-02-16] MEDS ORDERED: PROPOFOL 10 MG/ML 20 ML VIAL IV ONE (07:07)
--- NOTE | 2020-02-16 07:39 | P.PCN ---
Date of Procedure: 02/16/20 Procedure(s) Performed: Brief history: Patient is a pleasant 64-year-old white female scheduled for an elective upper endoscopy as well as colonoscopy as a part of evaluation of abdominal pain, abdominal bloating and change in bowel habits for the last 1 month duration. Pain is mostly in the right side and in the right upper quadrant radiating to the right lower quadrant area. No rectal bleeding or recent weight loss. Procedure performed: EsophagogastroduodenoscopyWith biopsy Colonoscopy with snare polypectomy Preoperative diagnosis: Abdominal pain Change in bowel habits Anesthesia: MAC Procedure: After informed consent was obtained from the patient was brought into the endoscopy unit and IV sedation was administered by anesthesia under continuous monitoring. Initially upper endoscopy was done. The Olympus GF 160 video endoscope was inserted inserted into the mouth and esophagus intubated without any difficulty and was gradually advanced into the stomach and duodenum and carefully examined. The bulb and second part of the duodenum appeared normal. Biopsies were done from this area to rule out celiac disease. The scope was then withdrawn into the stomach adequately insufflated with air and upon careful examination the antrum had mild gastritis and biopsies were done from this area. The body, cardia and fundus appeared normal. The scope was then withdrawn into the esophagus. The GE junction was located at 40 cm to the incisors. It appeared regular with n 2 superficial erosions consistent with LA grade B reflux esophagitis. Rest of the esophagus appeared normal. Patient tolerated the procedure well. At this time the patient continued to remain sedation. Initial digital rectal examination was normal. Olympus CF 160 video colonoscope was then inserted into the rectum and gradually advanced to the cecum without any difficulty. Careful examination was performed as the scope was gradually being withdrawn. The prep was excellent. The cecum, appeared normal. In the ascending colon there was a 5 mm and 7 mm polyps removed by snare polypectomy. In the transverse colon there was a 3 mm polyp removed by snare polypectomy. Rest of the ascending colon, transverse colon, descending colon, sigmoid colon appeared normal. In the rectum there were 3 polyps measuring between 7 mm, 8 mm and 1 cm in size all of which were removed by snare polypectomy. Retroflexion was performed in the rectum and no lesions were noted. Patient tolerated the procedure well. Impression: 1 Upper Endoscopy revealed mild antral gastritis and LA grade B reflux esophagitis] 2 Colonoscopy revealed a) 5 mm and 7 mm ascending colon polyp status post polypectomy b) 3 mm transverse colon polyp status post snare polypectomy c) 7 mm, 8 mm and 1 cm rectal polyps status post polypectomy Recommendations: Findings of this examination were discussed with the patient as well a and family. She was advised to follow with the biopsy results.]. She was advised to follow with the biopsy results. If the biopsy shows an adenoma she can have a repeat colonoscopy in 3 years
[2020-02-16 08:03] VITALS: BP 111/62; PULSE 66
== END 2020-02-16 08:17 | disposition home or self-care (01) ==
LOC: ORWHC2ENDO 06:18
PROVIDERS: ATTEND Internal Medicine Gastroenterology
DX: K21.0 Gastro-esophageal reflux disease with esophagitis (principal); K29.50 Unspecified chronic gastritis without bleeding; D12.3 Benign neoplasm of transverse colon; D12.8 Benign neoplasm of rectum; D12.2 Benign neoplasm of ascending colon; I10 Essential (primary) hypertension; E11.9 Type 2 diabetes mellitus without complications; Z88.5 Allergy status to narcotic agent; E78.2 Mixed hyperlipidemia; K85.90 Acute pancreatitis without necrosis or infection, unspecified; Z79.899 Other long term (current) drug therapy
CPT/HCPCS: 88305; 45385; 43239; J2250; J2405; J2001; J3010; J2704

== ENCOUNTER 2020-03-08 10:54 | Emergency (ER) | payer BC ==
[2020-03-08 11:05] VITALS: RESP 16
[2020-03-08 11:08] LABS: Glucose,Whole Blood 137 mg/dL (75-99)
[2020-03-08 12:18] LABS: Basophils # (A) 0.1 k/uL (0-0.2); Basophils % (A) 1 %; Eosinophils # (A) 0.4 k/uL (0-0.7); Eosinophils % (A) 5 %; HCT 45.6 % (34.0-46.0); HGB 14.8 gm/dL (11.4-16.0); Lymphocytes # (A) 1.8 k/uL (1.0-4.8); Lymphocytes % (A) 24 %; MCH 31.6 pg (25.0-35.0); MCHC 32.5 g/dL (31.0-37.0); Mean Platelet Volume 9.3; Monocytes # (A) 0.5 k/uL (0-1.0); Monocytes % (A) 6 %; Neutrophils # (A) 4.7 k/uL (1.3-7.7); Neutrophils % (A) 62 %; Platelet Count 240 k/uL (150-450); RBC 4.69 m/uL (3.80-5.40); RDW 13.3 % (11.5-15.5); WBC 7.5 k/uL (3.8-10.6)
[2020-03-08 12:20] LABS: Appearance,Urine Clear (Clear); Bilirubin,Urine Negative (Negative); Blood,Urine Negative (Negative); Color,Urine Yellow; Glucose,Urine (UA) 4+ (Negative); Ketones,Urine Negative (Negative); Leukocyte Esterase,Urine Negative (Negative); Nitrite,Urine Negative (Negative); Protein,Urine Negative (Negative); Specific Gravity,Urine 1.024 (1.001-1.035); Urobilinogen,Urine <2.0 mg/dL (<2.0)
[2020-03-08 12:25] LABS: MCV 97.2 fL (80.0-100.0)
[2020-03-08 12:32] LABS: Potassium 4.4 mmol/L (3.5-5.1)
[2020-03-08 12:33] LABS: ALT 30 U/L (4-34); AST 30 U/L (14-36); African American GFR (CKD) >90 (>60 ml/min/1.73 sqM); Albumin 4.7 g/dL (3.5-5.0); Alkaline Phosphatase 109 U/L (38-126); Anion Gap 8 mmol/L; Blood Urea Nitrogen 17 mg/dL (7-17); Calcium 9.9 mg/dL (8.4-10.2); Carbon Dioxide 23 mmol/L (22-30); Chloride 106 mmol/L (98-107); Glucose 140 mg/dL (74-99); Magnesium 2.3 mg/dL (1.6-2.3); Non-African American GFR(CKD) 80 (>60 ml/min/1.73 sqM); Sodium 137 mmol/L (137-145); Total Bilirubin 0.7 mg/dL (0.2-1.3); Total Protein 7.3 g/dL (6.3-8.2)
[2020-03-08 12:40] VITALS: TEMP 97.9
--- NOTE | 2020-03-08 12:45 | CT ---
EXAMINATION TYPE: CT brain wo con DATE OF EXAM: 03/08/2020 COMPARISON: None HISTORY: Visual disturbance. Elevated Blood sugar. CT DLP: 1084.4 mGycm Automated exposure control for dose reduction was used. FINDINGS: Ventricular system is midline. No evidence of displaced. Ventricular systems compatible with the isabella ent's age. No midline shift or mass effect. There may be very faint periventricular low attenuation a round nonspecific could be associated with remote microvascular ischemia. Within the circular sulcus on the left where is prominence of the caliber of the left MCA. Changes of chronic sinusitis. Intraorbital structures are symmetric. Craniocervical junction maintain ed. Sella turcica has a normal appearance. IMPRESSION: 1. No evidence of acute hemorrhage or mass effect. There is mild prominence of the left MCA within th e circular sulcus on the left which could be correlated with follow-up CTA or MRA as clinically warra nted. 2. If the patient has visual disturbance correlate with MRI as clinically warranted.
[2020-03-08] MEDS ORDERED: SODIUM CHLORIDE 0.9% 1,000 ML IV ONE (13:08)
--- NOTE | 2020-03-08 13:37 | CT ---
EXAMINATION TYPE: CT angio head DATE OF EXAM: 03/08/2020 COMPARISON: CT brain 03/08/2020 HISTORY: blurry vision, prominent Lt MCA CT DLP: 609.5 mGycm CONTRAST: CTA wrangell of [place] with 3-D reconstruction is performed and with IV Contrast, patient injected with 100 mL of Isovue 370. Contrast CTA of the wrangell of [place] was performed 3-D reconstruction imaging obtained at a separate workstation. Scattered atheromatous changes noted. Vertebrobasilar system as well as intracranial por tions of the internal carotid arteries and their major tributaries are patent. I do not see evidence for sizable aneurysm or vascular malformation. Please note MRI provides greater sensitivity and spe cificity. Visualized brain appears grossly unremarkable. IMPRESSION: No evidence for sizable aneurysm or vascular malformation.
--- NOTE | 2020-03-08 13:54 | ED ---
General Adult HPI - General Chief complaint: Recheck/Abnormal Lab/Rx Stated complaint: hyperglycemia Time Seen by Provider: 03/08/20 11:18 Source: patient, RN notes reviewed, old records reviewed Mode of arrival: ambulatory Limitations: no limitations - History of Present Illness Initial comments: 64-year-old female patient presents to the chief complaint hyperglycemia. Patient reports that her blood sugar has been running high the last few days. Patient was also since last night she has been having some blurred vision. Patient reports that she is able to blink her eyes to 2 times in the vision clears are within continued blurry and. She states this in both eyes. She denies any eye pain. She denies any headache. She denies any temporal pain she denies any weakness or any paresthesias. As a chest pain or shortness of breath. Systemic: Pt denies fatigue, fever/chills, rash. Pt denies weakness, night sweats, weight loss. Neuro: Pt denies headache, syncope or pre-syncope. HEENT: Pt denies ocular discharge or irritation, otalgia, rhinorrhea, pharyngitis or notable lymphadenopathy. Cardiopulmonary: Pt denies chest pain, SOB, heart palpitations, dyspnea on exertion. Abdominal/GI: Pt denies abdominal pain, n/v/d. : Pt denies dysuria, burning w/ urination, frequency/urgency. Denies new onset urinary or bowel incontinence. MSK: Pt denies myalgia, loss of strength or function in extremities. Neuro: Pt denies new onset weakness, paresthesias. - Related Data Home Medications Medication Instructions Recorded Confirmed Semaglutide [Rybelsus] 7 mg PO DAILY 02/14/20 03/08/20 Ertugliflozin Pidolate [Steglatro] 15 mg PO DAILY 03/08/20 03/08/20 lisinopriL [Zestril] 5 mg PO DAILY 03/08/20 03/08/20 Allergies Allergy/AdvReac Type Severity Reaction Status Date / Time hydromorphone HCl Allergy Hallucinati Verified 03/08/20 12:03 [From Dilaudid] ons codeine AdvReac Nausea Verified 03/08/20 12:03 TEGADERM Allergy Rash/Hives Uncoded 03/08/20 11:02 Review of Systems ROS Statement: Those systems with pertinent positive or pertinent negative responses have been documented in the HPI. ROS Other: All systems not noted in ROS Statement are negative. Past Medical History Past Medical History: Cancer, Diabetes Mellitus, Hypertension Additional Past Medical History / Comment(s): L breast cancer with surgery 10 years ago, IDDM type II. History of Any Multi-Drug Resistant Organisms: MRSA Date of last positivie culture/infection: 2011 MDRO Source:: ABDOMEN Past Surgical History: Breast Surgery, Hysterectomy Additional Past Surgical History / Comment(s): LEFT MASTECTOMY with reconstruction with partial implant. history for abnormal bleeding, 3 hernia repairs. Past Anesthesia/Blood Transfusion Reactions: Postoperative Nausea & Vomiting (PONV) Past Psychological History: No Psychological Hx Reported Smoking Status: Former smoker Past Alcohol Use History: Occasional Past Drug Use History: None Reported - Past Family History Father Family Medical History: Diabetes Mellitus, Myocardial Infarction (RI) Additional Family Medical History / Comment(s): Father of a RI in his 70s. Mother Family Medical History: Cancer Additional Family Medical History / Comment(s): Mother is 85 years old with history of thyroid cancer. Brother(s) Family Medical History: No Reported History Additional Family Medical History / Comment(s): Patient has 4 brothers and one has diabetes. Patient has 4 sisters and one has history of thyroid cancer. Patient has one daughter who is . General Exam - General Exam Comments Initial Comments: Constitutional: NAD, AOX3, Pt has pleasant affect. HEENT: NC/AT, trachea midline, neck supple, no lymphadenopathy. External ears appear normal, without discharge. Mucous membranes moist. Eyes PERRLA, EOM intact. There is no scleral icterus. No pallor noted. Intraocular pressure average of 20 bilaterally. No retinal hemorrhage or gross abnormalities are noted. Cardiopulmonary: RRR, no murmurs, rubs or gallops, no JVD noted. Lungs CTAB in anterior and posterior bailey. No peripheral edema. Abdominal exam: Abdomen soft and non-distended. Abdomen non-tender to palpation in all 4 quadrants. Bowel sounds active in LLQ. No hepatosplenomegaly. No ecchymosis Neuro: CN II-XII intact. No nuchal rigidity. No raccon eyes, no romero sign. No cervical spinal tenderness. No temporal artery tenderness. MSK: No posterior calf tenderness bilaterally, homans sign negative bilaterally. Posterior tibialis and radial pulse +2 bilaterally. Sensation intact in upper and lower extremities. Full active ROM in upper and lower extremities, 5/5 stregnth. Limitations: no limitations Course Vital Signs 03/08/20 03/08/20 03/08/20 11:02 11:42 12:39 Temperature 97.8 F 97.9 F Pulse Rate 69 62 Respiratory 16 16 16 Rate Blood Pressure 179/86 142/85 O2 Sat by Pulse 99 98 Oximetry Medical Decision Making - Medical Decision Making 64-year-old female patient presents to ED for evaluation of hyperglycemia some blurry vision. Patient is not wearing corrective lenses she reports that she has reading glasses appear she is due for an eye exam. Patient vital signs are stable, afebrile. Physical exam does not display acute pathology. Visual acuity is 20/40 bilaterally. Laboratory investigations are overall nonimmpressive. Patient does have +[address] brain without contrast displayed some prominence of the left MCA. Follow-up CTA did not display any sizable aneurysm or vascular malformation. Patient was discharged with close primary care as well as ophthalmology follow-up and return to ER if any worsening symptoms. Case discussed with Dr. Sepulveda . - Lab Data Result diagrams: 03/08/20 11:54 03/08/20 11:54 Lab Results 03/08/20 03/08/20 03/08/20 Range/Units 11:04 11:54 11:54 WBC 7.5 (3.8-10.6) k/uL RBC 4.69 (3.80-5.40) m/uL Hgb 14.8 (11.4-16.0) gm/dL Hct 45.6 (34.0-46.0) % MCV 97.2 D (80.0-100.0) fL MCH 31.6 (25.0-35.0) pg MCHC 32.5 (31.0-37.0) g/dL RDW 13.3 (11.5-15.5) % Plt Count 240 (150-450) k/uL Neutrophils % 62 % Lymphocytes % 24 % Monocytes % 6 % Eosinophils % 5 % Basophils % 1 % Neutrophils # 4.7 (1.3-7.7) k/uL Lymphocytes # 1.8 (1.0-4.8) k/uL Monocytes # 0.5 (0-1.0) k/uL Eosinophils # 0.4 (0-0.7) k/uL Basophils # 0.1 (0-0.2) k/uL Sodium (137-145) mmol/L Potassium (3.5-5.1) mmol/L Chloride (98-107) mmol/L Carbon Dioxide (22-30) mmol/L Anion Gap mmol/L BUN (7-17) mg/dL Creatinine (0.52-1.04) mg/dL Est GFR (CKD-EPI)AfAm (>60 ml/min/1.73 sqM) Est GFR (CKD-EPI)NonAf (>60 ml/min/1.73 sqM) Glucose (74-99) mg/dL POC Glucose (mg/dL) 137 H (75-99) mg/dL POC Glu [employer] Delivery Driver ID Leroyrt, Brianda Calcium (8.4-10.2) mg/dL Magnesium (1.6-2.3) mg/dL Total Bilirubin (0.2-1.3) mg/dL AST (14-36) U/L ALT (4-34) U/L Alkaline Phosphatase (38-126) U/L Total Protein (6.3-8.2) g/dL Albumin (3.5-5.0) g/dL Urine Color Yellow Urine Appearance Clear (Clear) Urine pH 6.0 (5.0-8.0) Ur Specific [place] 1.024 (1.001-1.035) Urine Protein Negative (Negative) Urine Glucose (UA) 4+ H (Negative) Urine Ketones Negative (Negative) Urine Blood Negative (Negative) Urine Nitrite Negative (Negative) Urine Bilirubin Negative (Negative) Urine Urobilinogen <2.0 (<2.0) mg/dL Ur Leukocyte Esterase Negative (Negative) 03/08/20 Range/Units 11:54 WBC (3.8-10.6) k/uL RBC (3.80-5.40) m/uL Hgb (11.4-16.0) gm/dL Hct (34.0-46.0) % MCV (80.0-100.0) fL MCH (25.0-35.0) pg MCHC (31.0-37.0) g/dL RDW (11.5-15.5) % Plt Count (150-450) k/uL Neutrophils % % Lymphocytes % % Monocytes % % Eosinophils % % Basophils % % Neutrophils # (1.3-7.7) k/uL Lymphocytes # (1.0-4.8) k/uL Monocytes # (0-1.0) k/uL Eosinophils # (0-0.7) k/uL Basophils # (0-0.2) k/uL Sodium 137 (137-145) mmol/L Potassium 4.4 (3.5-5.1) mmol/L Chloride 106 (98-107) mmol/L Carbon Dioxide 23 (22-30) mmol/L Anion Gap 8 mmol/L BUN 17 (7-17) mg/dL Creatinine 0.80 (0.52-1.04) mg/dL Est GFR (CKD-EPI)AfAm >90 (>60 ml/min/1.73 sqM) Est GFR (CKD-EPI)NonAf 80 (>60 ml/min/1.73 sqM) Glucose 140 H (74-99) mg/dL POC Glucose (mg/dL) (75-99) mg/dL POC Glu [employer]house Delivery Driver ID Calcium 9.9 (8.4-10.2) mg/dL Magnesium 2.3 (1.6-2.3) mg/dL Total Bilirubin 0.7 (0.2-1.3) mg/dL AST 30 (14-36) U/L ALT 30 (4-34) U/L Alkaline Phosphatase 109 (38-126) U/L Total Protein 7.3 (6.3-8.2) g/dL Albumin 4.7 (3.5-5.0) g/dL Urine Color Urine Appearance (Clear) Urine pH (5.0-8.0) Ur Specific [place] (1.001-1.035) Urine Protein (Negative) Urine Glucose (UA) (Negative) Urine Ketones (Negative) Urine Blood (Negative) Urine Nitrite (Negative) Urine Bilirubin (Negative) Urine Urobilinogen (<2.0) mg/dL Ur Leukocyte Esterase (Negative) Disposition Clinical Impression: Blurred vision, bilateral Disposition: HOME SELF-CARE Condition: Stable Instructions (If sedation given, give patient instructions): Blurred Vision (ED) Additional Instructions: Follow up with PCP and reinforcement maker tomorrow. Return to ER if any worsening symptoms. Is patient prescribed a controlled substance at d/c from ED?: No Referrals: Heather Newell MD [Primary Care Provider] - 1-2 days Devendra Dumont MD [STAFF PHYSICIAN] - 1-2 days
[2020-03-08 14:07] VITALS: BP 169/93; PULSE 71
== END 2020-03-08 14:06 | disposition home or self-care (01) ==
LOC: EC 10:54
DX: E11.65 Type 2 diabetes mellitus with hyperglycemia (principal); I10 Essential (primary) hypertension; Z79.84 Long term (current) use of oral hypoglycemic drugs; Z79.899 Other long term (current) drug therapy; Z88.5 Allergy status to narcotic agent; Z88.8 Allergy status to other drugs, medicaments and biological substances; Z83.3 Family history of diabetes mellitus; Z80.8 Family history of malignant neoplasm of other organs or systems; Z86.14 Personal history of Methicillin resistant Staphylococcus aureus infection; Z87.891 Personal history of nicotine dependence; Z85.3 Personal history of malignant neoplasm of breast; Z90.12 Acquired absence of left breast and nipple
CPT/HCPCS: 36415; 80053; 83735; 85025; 81003; 70496; 70450; 99285; Q9967

== ENCOUNTER → 2021-02-03 | Outpatient (CLI) | payer BC ==
--- NOTE | 2021-02-04 09:26 | CT ---
EXAMINATION TYPE: CT abdomen w con DATE OF EXAM: 02/03/2021 COMPARISON: 01/05/2020 HISTORY: 65-year-old female K85.9, unspecified acute pancreatitis. Abdominal pain and bloating. Hx of pancreatitis. TECHNIQUE: Contiguous axial scanning of the abdomen following administration of 100 ml Isovue 300 IV contrast. Delayed images through the kidneys and coronal/sagittal reconstructions performed. CT DLP: 593.5 mGycm Automated exposure control for dose reduction was used. FINDINGS: Partially visualized left breast prosthesis. Heart is normal in size. Redemonstrated pericardial calcifications, similar to prior. Lung bases tanner r without pleural effusion. Liver borderline in size at 17.5 cm. No focal lesion seen. No biliary ductal dilatation. Portal venou s system is patent. Gallbladder is collapsed. Adrenal glands, right kidney with extrarenal pelvis, left kidney, spleen, a nd pancreas appear within normal limits. No peripancreatic fluid collection or fat stranding. Homogen eous enhancement is demonstrated. No dilated small bowel, free fluid, or free air. Scattered nonenlarged and some borderline-sized retroperitoneal lymph nodes measuring up to 8 mm left para-aortic, axial image 33 remain unchanged suggesting reactive/post inflammatory etiology. Normal appendix. Oral contrast progressed into the cecum. Moderate stool burden. No pericolonic infla mmatory change. There is annular narrowing with soft tissue thickening at the rectosigmoid junction, partially visualized probably representing focal peristalsis, axial image 63. Moderate stool partiall y visualized within the rectum. The ovaries are visualized in the upper pelvis. Otherwise, remainder of the pelvis is not imaged. Bones: Advanced hypertrophic facet arthropathy mid to lower lumbar spine. IMPRESSION: 1. NO SPECIFIC CT FINDINGS OF ACUTE PANCREATITIS. 2. BORDERLINE HEPATOMEGALY AT 17.5 CM. 3. MODERATE STOOL BURDEN. THERE IS ANNULAR NARROWING AND SOFT TISSUE THICKENING AT THE RECTOSIGMOID J UNCTION, PARTIALLY VISUALIZED. FOCAL PERISTALSIS IS MOST LIKELY BUT THIS SHOULD BE CORRELATED WITH DI RECT VISUALIZATION IF ROUTINE SCREENING COLONOSCOPY IS NOT BEING PERFORMED. 4. PELVIS NOT INCLUDED ON THIS EXAM.
== END | disposition home or self-care (01) ==
LOC: RADCTMAIN 14:12
PROVIDERS: ATTEND Internal Medicine
DX: K85.90 Acute pancreatitis without necrosis or infection, unspecified (principal); Z87.19 Personal history of other diseases of the digestive system
CPT/HCPCS: 82565; 84520; 74160; 36415; Q9967

== ENCOUNTER → 2021-04-17 | Outpatient (CLI) | payer BC ==
--- NOTE | 2021-04-17 13:40 | MM ---
Reason for exam: clinical finding. Last mammogram was performed 3 years and 11 months ago. History: Patient is postmenopausal and has history of breast cancer at age 49. Family history of breast cancer in maternal aunt at age 40 and breast cancer in maternal grandmother. Benign left breast US guided needle locali of the left breast, February 28, 2009. Cancelled Left US Needle Biopsy of the left breast, February 05, 2009. Benign US right guided mammotome of the right breast, November 11, 2007. Reduction of the right breast, 2006. Implant in the left breast, 2005. Mastectomy of the left breast, September 2004. Malignant stereotactic core biopsy of the left breast, August 06, 2004. Core biopsy of the left breast, 2004. Benign excisional biopsy of the right breast, May 20, 1999. 2 excisional biopsies of the left breast. 3 excisional biopsies of the right breast. Indicated problem(s): lump or thickening in the left breast. Physical Findings: Nurse did not find any significant physical abnormalities on exam. MG 3D Diag Mammo W/Cad RT CC, MLO, and XCCL view(s) were taken of the right breast. Prior study comparison: May 26, 2017, right breast MG 3d diag mammo w/cad RT. June 24, 2010, right breast diagnostic digital di. There are scattered fibroglandular densities. There is chronic nodularity in the right breast. A few benign oil cyst calcifications. Posterior lateral asymmetric density disperses on additional views. These results were verbally communicated with the patient and result sheet given to the patient on 04/17/21. ASSESSMENT: Incomplete: need additional imaging evaluation, BI-RAD 0 RECOMMENDATION: Ultrasound. (left axilla as ordered)
--- NOTE | 2021-04-17 13:42 | USB ---
Reason for exam: additional evaluation requested from abnormal screening. History: Patient is postmenopausal and has history of breast cancer at age 49. Family history of breast cancer in maternal aunt at age 40 and breast cancer in maternal grandmother. Benign left breast US guided needle locali of the left breast, February 28, 2009. Cancelled Left US Needle Biopsy of the left breast, February 05, 2009. Benign US right guided mammotome of the right breast, November 11, 2007. Reduction of the right breast, 2006. Implant in the left breast, 2005. Mastectomy of the left breast, September 2004. Malignant stereotactic core biopsy of the left breast, August 06, 2004. Core biopsy of the left breast, 2004. Benign excisional biopsy of the right breast, May 20, 1999. 2 excisional biopsies of the left breast. 3 excisional biopsies of the right breast. US Breast Axilla LT Left breast axilla ultrasound demonstrates a 0.5 x 0.3 x 0.5cm oval nodule in the skin line contains an echogenic focus, probably calcification. This may be dermal calcification. Precautionary 3 month follow up recommended. These results were verbally communicated with the patient and result sheet given to the patient on 04/17/21. ASSESSMENT: Probably benign, BI-RAD 3 RECOMMENDATION: Ultrasound of the left breast in 3 months.
== END | disposition home or self-care (01) ==
LOC: RADMAMWWP 09:19
PROVIDERS: ATTEND Internal Medicine
DX: R92.1 Mammographic calcification found on diagnostic imaging of breast (principal); N63.20 Unspecified lump in the left breast, unspecified quadrant; Z80.3 Family history of malignant neoplasm of breast
CPT/HCPCS: 77061; 77065

== ENCOUNTER → 2021-08-08 | Outpatient (CLI) | payer BC ==
--- NOTE | 2021-08-08 13:13 | US ---
EXAMINATION TYPE: US axilla LT DATE OF EXAM: 08/08/2021 COMPARISON: NONE CLINICAL HISTORY: C50.912 MALIGNANT NEOPLASM OF UNSPECIFIED SITE OF LEFT BREAS. 3 MONTH FOLLOW FOR ACEVES PERFICIAL DERMAL LUMP Scanned left axilla at previous palp and once again found 0.4 x 0.5 x 0.2cm possible complex dermal c yst. This is smaller than comparison: Previous measurement 0.5 x 0.3 x 0.5 cm. Patient also had lump, that dissipates when she lays down, just inferior to axilla on lateral chest toward back - no focal anomaly seen IMPRESSION: 1. Stable suspected subcutaneous dermal cyst. 2. No additional suspicious abnormalities by ultrasound.
== END | disposition home or self-care (01) ==
LOC: RADUSWWP 12:39
PROVIDERS: ATTEND Internal Medicine
DX: C50.912 Malignant neoplasm of unspecified site of left female breast (principal)

== ENCOUNTER 2021-10-01 10:44 | Observation (INO) | payer BC ==
--- NOTE | 2021-10-01 11:19 | XR ---
EXAMINATION TYPE: XR chest 2V DATE OF EXAM: 10/01/2021 COMPARISON: Chest x-ray April 17, 2019 HISTORY: Chest pain. TECHNIQUE: Frontal and lateral views of the chest are obtained. FINDINGS: There is an azygos lobe/fissure redemonstrated. There is no suspicious focal air space opac ity, pleural effusion, or pneumothorax seen. The cardiac silhouette size is remains upper limits of normal with pericardial calcification redemonstrated and atherosclerotic change aortic knob again see n. The osseous structures are intact. IMPRESSION: No acute process. No significant change from prior.
[2021-10-01 12:18] LABS: Albumin 4.5 g/dL (3.5-5.0); Calcium 9.6 mg/dL (8.4-10.2); Magnesium 2.1 mg/dL (1.6-2.3); Potassium 4.4 mmol/L (3.5-5.1); Total Bilirubin 0.8 mg/dL (0.2-1.3); Total Protein 7.2 g/dL (6.3-8.2)
[2021-10-01 12:23] LABS: INR 0.9 (<1.2); Partial Thromboplastin Time 23.7 sec (22.0-30.0); Prothrombin Time 10.4 sec (9.0-12.0)
[2021-10-01 12:26] LABS: Basophils % (A) 0 %; Eosinophils # (A) 0.2 k/uL (0-0.7); Eosinophils % (A) 2 %; HCT 46.1 % (34.0-46.0); HGB 15.1 gm/dL (11.4-16.0); Lymphocytes # (A) 1.3 k/uL (1.0-4.8); Lymphocytes % (A) 16 %; MCH 33.1 pg (25.0-35.0); MCHC 32.8 g/dL (31.0-37.0); MCV 101.1 fL (80.0-100.0); Macrocytosis Slight; Mean Platelet Volume 9.8; Monocytes # (A) 0.4 k/uL (0-1.0); Monocytes % (A) 4 %; Neutrophils # (A) 6.5 k/uL (1.3-7.7); Neutrophils % (A) 76 %; Platelet Count 229 k/uL (150-450); RBC 4.56 m/uL (3.80-5.40); WBC 8.5 k/uL (3.8-10.6)
--- NOTE | 2021-10-01 12:59 | CT ---
EXAMINATION TYPE: CT chest angio for PE DATE OF EXAM: 10/01/2021 COMPARISON: None HISTORY: pleuritic chest pain CT DLP: 318.9 mGycm Automated exposure control for dose reduction was used. CONTRAST: CT Chest for pulmonary embolism performed with with IV Contrast, patient injected with 100 ml mL of I sovue 370. FINDINGS: LUNGS: Subpleural apical 3 mm nodule likely benign. 5 mm right upper lobe subpleural nodule also like ly benign. Additional 2 mm nodule superior segment right lower lobe axial image 73 2 small to charact erize. Incidental note made of an azygos lobe and fissure no consolidative pneumonia. No pleural effu shanta. No pneumothorax. MEDIASTINUM: There is satisfactory enhancement of the pulmonary artery and its branches, there is no CT evidence for pulmonary embolism. There are no greater than 1 cm hilar or mediastinal lymph nodes. There is dense pericardial calcification is noted. Atherosclerotic change of the aorta but no eviden ce of aneurysm.. OTHER: Breast implants surgery noted. Hypertrophic and degenerative change of the spine. Right chest calcifications are noted. Shotty adenopathy in the left axilla. Maximal short axis measurement is 8 mm. IMPRESSION: 1. No diagnostic evidence of pulmonary embolism. 2. 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 Correlate clini shyanne. On 3. 5 mm or less pulmonary nodules likely benign. Six-month follow-up could be obtained to confirm sta bility.
--- NOTE | 2021-10-01 13:20 | ED ---
General Adult HPI - General Chief complaint: Chest Pain Stated complaint: Chest pain Time Seen by Provider: 10/01/21 10:50 Source: patient Mode of arrival: ambulatory Limitations: no limitations - History of Present Illness Initial comments: 66-year-old female past history of diabetes, breast cancer in remission for the past 10 years who presents emergency Department with reported chest pain. States that for the past couple days she has had substernal pressure which radiated into her left side. Denies that it is reproducible upon palpation. No previous history of cardiac issues. States that she has had multiple surgeries on her chest wall and therefore is unsure if it is related to this. No associated nausea, vomiting or diaphoresis. Does admit to shortness of breath. No ripping or tearing sensation to her back. No abdominal pain. Has noted some new lumps to her anterior chest wall adjacent to her breast implant. Denies receiving chemo or radiation at the time of her diagnosis. No other alleviating, precipitating or modifying factors - Related Data Home Medications Medication Instructions Recorded Confirmed lisinopriL [Zestril] 5 mg PO DAILY 03/08/20 10/01/21 Aspirin EC [Ecotrin Low Dose] 81 mg PO DAILY 10/01/21 10/01/21 Atorvastatin [Lipitor] 80 mg PO DAILY 10/01/21 10/01/21 Dapagliflozin Propanediol [Farxiga] 10 mg PO DAILY 10/01/21 10/01/21 Ezetimibe [Zetia] 10 mg PO DAILY 10/01/21 10/01/21 sitaGLIPtin PHOS/metFORMIN HCL 1 tab PO HS 10/01/21 10/01/21 [Janumet Xr 100-1,000 mg Tablet] traZODone HCL 50 mg PO HS PRN 10/01/21 10/01/21 Allergies Allergy/AdvReac Type Severity Reaction Status Date / Time hydromorphone HCl Allergy Hallucinati Verified 10/01/21 11:56 [From Dilaudid] ons codeine AdvReac Nausea Verified 10/01/21 11:56 TEGADERM Allergy Rash/Hives Uncoded 10/01/21 10:50 Review of Systems ROS Statement: Those systems with pertinent positive or pertinent negative responses have been documented in the HPI. ROS Other: All systems not noted in ROS Statement are negative. Past Medical History Past Medical History: Cancer, Diabetes Mellitus, Hypertension Additional Past Medical History / Comment(s): L breast cancer with surgery 10 years ago, IDDM type II. History of Any Multi-Drug Resistant Organisms: MRSA Date of last positivie culture/infection: 2011 MDRO Source:: ABDOMEN Past Surgical History: Breast Surgery, Hysterectomy Additional Past Surgical History / Comment(s): LEFT MASTECTOMY with reconstruction with partial implant. history for abnormal bleeding, 3 hernia repairs. Past Anesthesia/Blood Transfusion Reactions: Postoperative Nausea & Vomiting (PONV) Past Psychological History: No Psychological Hx Reported Smoking Status: Former smoker Past Alcohol Use History: Occasional Past Drug Use History: None Reported - Past Family History Father Family Medical History: Diabetes Mellitus, Myocardial Infarction ([place]) Additional Family Medical History / Comment(s): Father of a [place] in his 70s. Mother Family Medical History: Cancer Additional Family Medical History / Comment(s): Mother is 85 years old with history of thyroid cancer. Brother(s) Family Medical History: No Reported History Additional Family Medical History / Comment(s): Patient has 4 brothers and one has diabetes. Patient has 4 sisters and one has history of thyroid cancer. Patient has one daughter who is . General Exam Limitations: no limitations General appearance: alert, in no apparent distress Head exam: Present: atraumatic, normocephalic, normal inspection Eye exam: Present: normal appearance, PERRL, EOMI. Absent: scleral icterus, conjunctival injection, periorbital swelling ENT exam: Present: normal exam, mucous membranes moist Neck exam: Present: normal inspection. Absent: tenderness, meningismus, lymphadenopathy Respiratory exam: Present: normal lung sounds bilaterally, chest wall tenderness (palpable 1 cm subcut nodule to the 10:00 position of the breast. ). Absent: respiratory distress, wheezes, rales, rhonchi, stridor Cardiovascular Exam: Present: regular rate, normal rhythm, normal heart sounds. Absent: systolic murmur, diastolic murmur, rubs, gallop, clicks GI/Abdominal exam: Present: soft, normal bowel sounds. Absent: distended, tenderness, guarding, rebound, rigid Extremities exam: Present: normal inspection, full ROM, normal capillary refill. Absent: tenderness, pedal edema, joint swelling, calf tenderness Back exam: Present: normal inspection Neurological exam: Present: alert, oriented X3, CN II-XII intact Psychiatric exam: Present: normal affect, normal mood Skin exam: Present: warm, dry, intact, normal color. Absent: rash Course Vital Signs 10/01/21 10/01/21 10/01/21 10:47 11:19 14:42 Temperature 98.2 F 96.9 F L Pulse Rate 77 65 Pulse Rate [ 60 Pulse Oximetery ] Respiratory 16 18 18 Rate Blood Pressure 156/85 125/70 Blood Pressure 138/88 [Right Arm] O2 Sat by Pulse 96 97 98 Oximetry EKG Findings - EKG Comments: EKG Findings:: EKG demonstrates sinus rhythm with a rate of 70. GA interval 149. QRS 85. QTC of 395. No acute ST segment elevations. Minimal ST depression in the inferior and lateral leads Medical Decision Making - Medical Decision Making Upon arrival the patient is placed into room 1. A thorough history and physical exam was performed. Patient placed on continuous pulse ox and cardiac monitoring. 12-lead EKG is performed which demonstrates some ST depression in 2, 3 and aVF as well as V4 through V6. Laboratory studies are conducted. Patient is sent over for CT of her chest due to her history of breast cancer with new chest wall masses. CTA does not demonstrate a pulmonary embolism. There is dense pericardial calcifications which could be associated with constrictive pericarditis. Because of these results I did call and speak with Dr. pacheco who agreed to admit the patient. Echo was ordered and will consult cardiology. Patient agreed to the treatment plan was admitted to the floor in stable condition - Lab Data Result diagrams: 10/01/21 11:16 10/01/21 11:16 Lab Results 10/01/21 10/01/21 10/01/21 Range/Units 11:16 11:16 11:16 WBC 8.5 (3.8-10.6) k/uL RBC 4.56 (3.80-5.40) m/uL Hgb 15.1 (11.4-16.0) gm/dL Hct 46.1 H (34.0-46.0) % MCV 101.1 H (80.0-100.0) fL MCH 33.1 (25.0-35.0) pg MCHC 32.8 (31.0-37.0) g/dL RDW 14.0 (11.5-15.5) % Plt Count 229 (150-450) k/uL MPV 9.8 Neutrophils % 76 % Lymphocytes % 16 % Monocytes % 4 % Eosinophils % 2 % Basophils % 0 % Neutrophils # 6.5 (1.3-7.7) k/uL Lymphocytes # 1.3 (1.0-4.8) k/uL Monocytes # 0.4 (0-1.0) k/uL Eosinophils # 0.2 (0-0.7) k/uL Basophils # 0.0 (0-0.2) k/uL Macrocytosis Slight PT 10.4 (9.0-12.0) sec INR 0.9 (<1.2) APTT 23.7 (22.0-30.0) sec D-Dimer 0.42 (<0.60) mg/L FEU Sodium 139 (137-145) mmol/L Potassium 4.4 (3.5-5.1) mmol/L Chloride 104 (98-107) mmol/L Carbon Dioxide 26 (22-30) mmol/L Anion Gap 9 mmol/L BUN 17 (7-17) mg/dL Creatinine 0.82 (0.52-1.04) mg/dL Est GFR (CKD-EPI)AfAm 88 (>60 ml/min/1.73 sqM) Est GFR (CKD-EPI)NonAf 76 (>60 ml/min/1.73 sqM) Glucose 137 H (74-99) mg/dL Calcium 9.6 (8.4-10.2) mg/dL Magnesium 2.1 (1.6-2.3) mg/dL Total Bilirubin 0.8 (0.2-1.3) mg/dL AST 26 (14-36) U/L ALT 28 (4-34) U/L Alkaline Phosphatase 126 (38-126) U/L Troponin I (0.000-0.034) ng/mL NT-Pro-B Natriuret Pep pg/mL Total Protein 7.2 (6.3-8.2) g/dL Albumin 4.5 (3.5-5.0) g/dL Lipase 225 (23-300) U/L 10/01/21 10/01/21 Range/Units 11:16 11:16 WBC (3.8-10.6) k/uL RBC (3.80-5.40) m/uL Hgb (11.4-16.0) gm/dL Hct (34.0-46.0) % MCV (80.0-100.0) fL MCH (25.0-35.0) pg MCHC (31.0-37.0) g/dL RDW (11.5-15.5) % Plt Count (150-450) k/uL MPV Neutrophils % % Lymphocytes % % Monocytes % % Eosinophils % % Basophils % % Neutrophils # (1.3-7.7) k/uL Lymphocytes # (1.0-4.8) k/uL Monocytes # (0-1.0) k/uL Eosinophils # (0-0.7) k/uL Basophils # (0-0.2) k/uL Macrocytosis PT (9.0-12.0) sec INR (<1.2) APTT (22.0-30.0) sec D-Dimer (<0.60) mg/L FEU Sodium (137-145) mmol/L Potassium (3.5-5.1) mmol/L Chloride (98-107) mmol/L Carbon Dioxide (22-30) mmol/L Anion Gap mmol/L BUN (7-17) mg/dL Creatinine (0.52-1.04) mg/dL Est GFR (CKD-EPI)AfAm (>60 ml/min/1.73 sqM) Est GFR (CKD-EPI)NonAf (>60 ml/min/1.73 sqM) Glucose (74-99) mg/dL Calcium (8.4-10.2) mg/dL Magnesium (1.6-2.3) mg/dL Total Bilirubin (0.2-1.3) mg/dL AST (14-36) U/L ALT (4-34) U/L Alkaline Phosphatase (38-126) U/L Troponin I <0.012 (0.000-0.034) ng/mL NT-Pro-B Natriuret Pep 486 pg/mL Total Protein (6.3-8.2) g/dL Albumin (3.5-5.0) g/dL Lipase (23-300) U/L Disposition Clinical Impression: Chest pain, Constrictive pericarditis Disposition: ADMITTED IP TO THIS HOSP Condition: Stable Is patient prescribed a controlled substance at d/c from ED?: No Decision to Admit Reason: Admit from EC Decision Date: 10/01/21 Decision Time: 13:59
[2021-10-01] MEDS ORDERED: NALOXONE 0.4 MG/ML 1 ML VIAL IV PRN (13:59)
[2021-10-01] MEDS ORDERED: traZODone HCL 50 MG TAB PO PRN (14:28)
--- NOTE | 2021-10-01 14:37 | P.HPIM ---
History of Present Illness H&P Date: 10/01/21 HISTORY OF PRESENT ILLNESS This is a 66-year-old female patient of Dr. Newell with past medical history of diabetes mellitus type 2, hyperlipidemia, left breast cancer status post mastectomy 11 years ago without chemo therapy/radiation therapy. Patient was last hospitalized in 2019 which time she was treated for chest pain and acute coronary syndrome was ruled out, she underwent Persantine stress test which was negative for reversible ischemia. Patient now presents to the emergency center with right shoulder pain that started a couple days ago. Now she has left-sided chest pain worse when she takes a deep breath and reports cough. She denies any syncopal episodes, no lightheadedness or dizziness. No nausea or vomiting. She states her blood sugars have been improved. EKG is sinus rhythm with T-wave abnormalities. She was afebrile, heart rate in the 70s, blood pressure 156/85 and pulse ox 96% on room air. CBC is unremarkable. INR 0.9. D-dimer 0.42. Electrolytes and renal function are normal. Blood sugar 137. Liver function tests normal. Troponin negative. ProBNP 486. Lipase 225. Chest x-ray reveals no acute process. CTA of the chest revealed no pulmonary embolism. 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 A 5 mm or less pulmonary nodules likely benign. Patient is seen today in the emergency center waiting for bed on the observation unit, cardiology consult, echocardiogram. REVIEW OF SYSTEMS Constitutional: No fever, no chills, no night sweats. No weight change. No weakness, fatigue or lethargy. No daytime sleepiness. EENT: No headache. No blurred vision or double vision, no loss of vision. No loss of Hearing, no ringing in the ears, no dizziness. No nasal drainage or congestion. No epistaxis. No sore throat. Lungs: No shortness of breath, cough, no sputum production. No wheezing. Cardiovascular: Reports chest pain, no lower extremity edema. No palpitations. No paroxysmal nocturnal dyspnea. No orthopnea. No lightheadedness or dizziness. No syncopal episodes. Abdominal: No abdominal pain. No nausea, vomiting. No diarrhea. No consti pation. No bloody or tarry stools. No loss of appetite. Genitourinary: No dysuria, increased frequency, urgency. No urinary retention. Musculoskeletal: No myalgias. No muscle weakness, no gait dysfunction, no frequent falls. No back pain. No neck pain. Reports right shoulder pain. Integumentary: No wounds, no lesions. No rash or pruritus. No unusual bruising. No change in hair or nails. Neurologic: No aphasia. No facial droop. No change in mentation. No head injury. No headache. No paralysis. No paresthesia. Psychiatric: No depression. No anxiety. No mood swings. Endocrine: No abnormal blood sugars. No weight change. No excessive sweating or thirst. No cold intolerance. MEDICAL HISTORY Diabetes mellitus type 2 Hyperlipidemia Left breast cancer status post mastectomy SURGICAL HISTORY Left breast mastectomy Hernia repairs SOCIAL HISTORY Patient was a smoker of less than one pack per day for 10 years and quit 18 years ago. She denies any marijuana or illicit drug use. She drinks alcohol socially. She lives at home with her . She works in [employer]. FAMILY HISTORY Father of a [place] in his 70s. Mother is 88 years old with history of thyroid cancer. Her mother and aunt both had breast cancer. Patient has 4 brothers and one has diabetes. Patient has 4 sisters and one has history of thyroid cancer. Patient has one daughter who is . PHYSICAL EXAMINATION Gen: This is a 66-year-old female. Patient's resting on the ER stretcher and appears to be comfortable and in no acute distress. HEENT: Head is atraumatic, normocephalic. Pupils equal, round. Sclerae is anicteric. NECK: Supple. No JVD. No lymphadenopathy. No thyromegaly. LUNGS: Clear to auscultation. No wheezes or rhonchi. No intercostal retractions. HEART: Regular rate and rhythm. No murmur. ABDOMEN: Soft. Bowel sounds are present. No masses. No tenderness. EXTREMITIES: No pedal edema. No calf tenderness. NEUROLOGICAL: Patient is awake, alert and oriented x3. Cranial nerves 2 through 12 are grossly intact. ASSESSMENT AND PLAN 1. 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 Echocar diogram, cardiology consult, monitoring engineer, serial troponins, continue patient on aspirin 81 mg daily, Lipitor 80 mg daily. 2. Diabetes mellitus type 2. Patient will be continued on Farxiga 10 mg daily (if family brings med from home), Tradjenta 5 mg daily, hold Janumet, start patient on NovoLog scale before meals and at bedtime, continue lisinopril 5 mg daily. 3. Hyperlipidemia. Continue Lipitor 80 mg daily. Continue Zetia 10 mg daily. 4. Hypertension. Continue lisinopril 5 mg daily. 5. History of breast cancer, stable. 6. GI prophylaxis. Protonix. 7. DVT prophylaxis. SCDs and YAN christianae. CODE STATUS: Full code Patient placed as observation status. DISCHARGE PLAN Home. Impression and plan of care have been directed as dictated by the signing physician. Kiana Love nurse practitioner acting as scribe for signing physician. Past Medical History Past Medical History: Cancer, Diabetes Mellitus, Hypertension Additional Past Medical History / Comment(s): L breast cancer with surgery 10 years ago, IDDM type II. History of Any Multi-Drug Resistant Organisms: MRSA Date of last positivie culture/infection: 2011 MDRO Source:: ABDOMEN Past Surgical History: Breast Surgery, Hysterectomy Additional Past Surgical History / Comment(s): LEFT MASTECTOMY with reconstruction with partial implant. history for abnormal bleeding, 3 hernia repairs. Past Anesthesia/Blood Transfusion Reactions: Postoperative Nausea & Vomiting (PONV) Past Psychological History: No Psychological Hx Reported Smoking Status: Former smoker Past Alcohol Use History: Occasional Past Drug Use History: None Reported - Past Family History Father Family Medical History: Diabetes Mellitus, Myocardial Infarction ([place]) Additional Family Medical History / Comment(s): Father of a [place] in his 70s. Mother Family Medical History: Cancer Additional Family Medical History / Comment(s): Mother is 85 years old with history of thyroid cancer. Brother(s) Family Medical History: No Reported History Additional Family Medical History / Comment(s): Patient has 4 brothers and one has diabetes. Patient has 4 sisters and one has history of thyroid cancer. Patient has one daughter who is . Medications and Allergies Home Medications Medication Instructions Recorded Confirmed Type lisinopriL [Zestril] 5 mg PO DAILY 03/08/20 10/01/21 History Aspirin EC [Ecotrin Low Dose] 81 mg PO DAILY 10/01/21 10/01/21 History Atorvastatin [Lipitor] 80 mg PO DAILY 10/01/21 10/01/21 History Dapagliflozin Propanediol [Farxiga] 10 mg PO DAILY 10/01/21 10/01/21 History Ezetimibe [Zetia] 10 mg PO DAILY 10/01/21 10/01/21 History sitaGLIPtin PHOS/metFORMIN HCL 1 tab PO HS 10/01/21 10/01/21 History [Janumet Xr 100-1,000 mg Tablet] traZODone HCL 50 mg PO HS PRN 10/01/21 10/01/21 History Allergies Allergy/AdvReac Type Severity Reaction Status Date / Time hydromorphone HCl Allergy Hallucinati Verified 10/01/21 11:56 [From Dilaudid] ons codeine AdvReac Nausea Verified 10/01/21 11:56 TEGADERM Allergy Rash/Hives Uncoded 10/01/21 10:50 Physical Exam Vitals: Vital Signs Temp Pulse Resp BP Pulse Ox 10/01/21 11:19 65 18 125/70 97 10/01/21 10:47 98.2 F 77 16 156/85 96 Intake and Output 09/30/21 10/01/21 10/01/21 22:59 06:59 14:59 Other: Weight 64.864 kg Results CBC & Chem 7: 10/01/21 11:16 10/01/21 11:16 Labs: Abnormal Lab Results - Last 24 Hours (Table) 10/01/21 10/01/21 Range/Units 11:16 11:16 Hct 46.1 H (34.0-46.0) % MCV 101.1 H (80.0-100.0) fL Glucose 137 H (74-99) mg/dL
[2021-10-01] MEDS: INSULIN ASPART (NovoLOG) 100 UNIT/ML VIAL SQ SCH ×2 (17:23→21:13)
[2021-10-01 17:25] LABS: Glucose,Whole Blood 161 mg/dL (75-99)
[2021-10-01 21:04] LABS: Glucose,Whole Blood 308 mg/dL (75-99)
--- NOTE | 2021-10-02 07:22 | ECHOF ---
Referral Reason:chest pain, constrictive pericarditis MEASUREMENTS -------- HEIGHT: 152.4 cm WEIGHT: 64.9 kg BP: RVIDd: 2.8 cm (< 3.3) IVSd: 1.2 cm (0.6 - 1.1) LVIDd: 3.4 cm (3.9 - 5.3) LVPWd: 1.2 cm (0.6 - 1.1) IVSs: 1.2 cm LVIDs: 2.6 cm LVPWs: 1.2 cm LA Diam: 2.9 cm (2.7 - 3.8) MV EXCURSION: 13.883 mm (> 18.000) MV EF SLOPE: 54 mm/s (70 - 150) EPSS: 0.1 cm RAP: 5.00 mmHg RVSP: 32.71 mmHg FINDINGS -------- Sinus rhythm. This was a technically difficult study with suboptimal views. Pt. Has Breast inplants The left ventricular size is normal. There is borderline concentric left ventricular hypertrophy. Overall left ventricular systolic function is normal with, an EF between 55 - 60 %. The right ventricle is normal in size. The left atrial size is normal. The right atrial size is normal. The aortic valve was not well visualized. The mitral valve is normal. Mild mitral regurgitation is present. The tricuspid valve appears structurally normal. Mild tricuspid regurgitation present. Right vent ricular systolic pressure is normal at < 35 mmHg. The pulmonic valve was not well visualized. There is a small, generalized pericardial effusion present. CONCLUSIONS -------- 1. This was a technically difficult study with suboptimal views. 2. There is borderline concentric left ventricular hypertrophy. 3. Overall left ventricular systolic function is normal with, an EF between 55 - 60 %. 4. The left atrial size is normal. 5. Mild mitral regurgitation is present. 6. Mild tricuspid regurgitation present. 7. There is a small, generalized pericardial effusion present. VACUUM WORKER: Sharon Fontaine RDCS
[2021-10-02] MEDS ORDERED: PANTOPRAZOLE 40 MG TABLET PO SCH (07:30)
[2021-10-02 07:33] LABS: Glucose,Whole Blood 179 mg/dL (75-99)
[2021-10-02 07:47] VITALS: RESP 16
[2021-10-02] MEDS: INSULIN ASPART (NovoLOG) 100 UNIT/ML VIAL SQ SCH ×2 (07:48→13:09)
[2021-10-02] MEDS ORDERED: ATORVASTATIN 80 MG TAB PO SCH (09:00)
[2021-10-02] MEDS ORDERED: LINAGLIPTIN 5 MG TABLET PO SCH (09:00)
[2021-10-02] MEDS ORDERED: NON FORMULARY DRUG (Dapagliflozin Propanediol [Farxiga] 10 MG Tablet) PO SCH (09:00)
[2021-10-02] MEDS ORDERED: EZETIMIBE 10 MG TAB PO SCH (09:00)
[2021-10-02] MEDS ORDERED: lisinopriL 5 MG TAB PO SCH (09:00)
[2021-10-02] MEDS ORDERED: ASPIRIN 81 MG PO SCH (09:00)
[2021-10-02 09:09] LABS: Basophils # (A) 0.05 X 10*3/uL (0.00-0.10); Basophils % (A) 0.6 %; Eosinophils # (A) 0.34 X 10*3/uL (0.04-0.35); Eosinophils % (A) 4.3 %; HCT 45.6 % (37.2-46.3); HGB 14.3 g/dL (12.0-15.0); Immature Grans, Automated 0.4 %; Lymphocytes # (A) 1.85 X 10*3/uL (0.90-5.00); Lymphocytes % (A) 23.7 %; MCH 31.1 pg (27.0-32.0); MCHC 31.4 g/dL (32.0-37.0); MCV 99.1 fL (80.0-97.0); Mean Platelet Volume 12.8 fL (9.5-12.2); NRBC Per 100 WBC 0 /100 WBCS (0.0-0.0); Neutrophils # (A) 4.85 X 10*3/uL (1.80-7.70); Platelet Count 210 X 10*3/uL (140-440); RDW 13.9 % (11.5-14.5); WBC 7.82 X 10*3/uL (4.50-10.00)
[2021-10-02 09:21] LABS: African American GFR (CKD) 78.3 (60.0-200.0); Anion Gap 13.6 mmol/L (10.00-18.00); BUN/Creat Ratio 20.67 Ratio (12.00-20.00); Blood Urea Nitrogen 18.6 mg/dL (9.0-27.0); Calcium 9.9 mg/dL (8.7-10.3); Carbon Dioxide 21.4 mmol/L (20.0-27.5); Non-African American GFR(CKD) 67.6 (60.0-200.0); Potassium 4.7 mmol/L (3.5-5.5)
--- NOTE | 2021-10-02 10:08 | P.CRDCN ---
History of Present Illness Consult date: 10/02/21 History of present illness: HISTORY OF PRESENT ILLNESS: This is a 66-year-old female with a past medical history significant for left breast cancer with mastectomy, hypertension, hyperlipidemia, diabetes, former nicotine dependence, and occasional alcohol use. Patient does not follow with a software lead. We have been asked to see the patient in consultation for chest pain. Patient examined at the bedside. Patient presented to the hospital for chief complaint of chest discomfort. Patient states over the weekend she was having discomfort in her right shoulder and arm. She states she did not do anything strenuous and thought maybe she slept wrong. She states her right shoulder pain had improved however over the past few days she has been having discomfort in her chest. She states it is on the left side of her chest and feels sort of like a stabbing sensation. She states the pain is worse when she lays flat and describes it as a heavy pressure. She states she has the discomfort every time she takes a deep breath. * EKG reveals sinus mechanism with T-wave inversions in inferior and lateral leads * Chest xray negative for acute process * Chest CTA: No diagnostic evidence for PE. Dense pericardial calcifications can be associated with constructive pericarditis. * Laboratory data: WBC 7.82. Hemoglobin 14.3. Platelet count 210. Sodium 140. Potassium 4.7. BUN 18.6. Creatinine 0.9. * Current home cardiac medications include lisinopril 5 mg daily, Zetia 10 mg daily, Lipitor 80 mg daily, aspirin 81 mg daily * Echocardiogram completed revealing ejection fraction 55-60%, mild MR, mild TR, and small generalized pericardial effusion * Patient underwent Persantine stress test in 2019 which was negative for ischemia REVIEW OF SYSTEMS: At the time of my exam: CONSTITUTIONAL: Denies fever or chills. HEENT: Denies blurred vision, vision changes, or eye pain. Denies hemoptysis CARDIOVASCULAR: Denies chest pain. Denies orthopnea. Denies PND. Denies palpitations RESPIRATORY: Denies shortness of breath. GASTROINTESTINAL: Denies abdominal pain. Denies nausea or vomiting. HEMATOLOGIC: Denies bleeding disorders. GENITOURINARY: Denies any blood in urine. SKIN: Denies pruitis. Denies rash. PHYSICAL EXAM: VITAL SIGNS: Reviewed. GENERAL: Well-developed in no acute distress. HEENT: Head is normocephalic. Pupils are equal, round. Sclerae anicteric. Mucous membranes of the mouth are moist. Neck supple. No JVD or thyromegaly LUNGS: Respirations even and unlabored. Lungs essentially clear to auscultation bilaterally. HEART: Regular rate and rhythm. S1 and S2 heard. ABDOMEN: Soft. Nondistended. Nontender. EXTREMITIES: Normal range of motion. No clubbing or cyanosis. Peripheral pulses intact. No lower extremity edema NEUROLOGIC: Awake and alert. Oriented x 3. ASSESSMENT: Chest pain, troponin negative x 3 Small generalized pericardial effusion Hypertension Hyperlipidemia Diabetes Former nicotine dependence Left breast cancer with mastectomy PLAN: An acute coronary event has been ruled out Pericardial calcifications seen on CTA may be secondary to history of radiation from her breast CA. Patient not exhibiting signs of constrictive pericarditis Resume home cardiac medications Check sed rate and CRP Patient to undergo stress echo today to assess for reversible ischemia Further recommendations pending patient course Nurse practitioner note has been reviewed by physician. Signing provider agrees with the documented findings, assessment, and plan of care. Past Medical History Past Medical History: Cancer, Diabetes Mellitus, Hypertension Additional Past Medical History / Comment(s): L breast cancer with surgery 10 years ago, IDDM type II. History of Any Multi-Drug Resistant Organisms: MRSA Date of last positivie culture/infection: 2011 MDRO Source:: ABDOMEN Past Surgical History: Breast Surgery, Hysterectomy Additional Past Surgical History / Comment(s): LEFT MASTECTOMY with recon struction with partial implant. history for abnormal bleeding, 3 hernia repairs. Past Anesthesia/Blood Transfusion Reactions: Postoperative Nausea & Vomiting (PONV) Past Psychological History: No Psychological Hx Reported Smoking Status: Former smoker Past Alcohol Use History: Occasional Past Drug Use History: None Reported - Past Family History Father Family Medical History: Diabetes Mellitus, Myocardial Infarction ([place]) Additional Family Medical History / Comment(s): Father of a [place] in his 70s. Mother Family Medical History: Cancer Additional Family Medical History / Comment(s): Mother is 85 years old with history of thyroid cancer. Brother(s) Family Medical History: No Reported History Additional Family Medical History / Comment(s): Patient has 4 brothers and one has diabetes. Patient has 4 sisters and one has history of thyroid cancer. Patient has one daughter who is . Medications and Allergies Home Medications Medication Instructions Recorded Confirmed Type lisinopriL [Zestril] 5 mg PO DAILY 03/08/20 10/01/21 History Aspirin EC [Ecotrin Low Dose] 81 mg PO DAILY 10/01/21 10/01/21 History Atorvastatin [Lipitor] 80 mg PO DAILY 10/01/21 10/01/21 History Dapagliflozin Propanediol [Farxiga] 10 mg PO DAILY 10/01/21 10/01/21 History Ezetimibe [Zetia] 10 mg PO DAILY 10/01/21 10/01/21 History sitaGLIPtin PHOS/metFORMIN HCL 1 tab PO HS 10/01/21 10/01/21 History [Janumet Xr 100-1,000 mg Tablet] traZODone HCL 50 mg PO HS PRN 10/01/21 10/01/21 History Allergies Allergy/AdvReac Type Severity Reaction Status Date / Time hydromorphone HCl Allergy Hallucinati Verified 10/01/21 11:56 [From Dilaudid] ons codeine AdvReac Nausea Verified 10/01/21 11:56 TEGADERM Allergy Rash/Hives Uncoded 10/01/21 10:50 Physical Exam Vitals: Vital Signs Temp Pulse Pulse Resp BP BP Pulse Ox 10/02/21 07:00 98 F 68 16 120/72 92 L 10/02/21 02:25 71 20 10/02/21 01:45 98.2 F 66 20 118/74 97 10/01/21 20:57 71 20 10/01/21 19:44 98.1 F 71 20 136/68 97 10/01/21 17:29 98.3 F 70 18 126/62 96 10/01/21 14:42 96.9 F L 60 18 138/88 98 10/01/21 11:19 65 18 125/70 97 10/01/21 10:47 98.2 F 77 16 156/85 96 Intake and Output 10/01/21 10/02/21 10/02/21 22:59 06:59 14:59 Intake Total 240 Balance 240 Intake: Oral 240 Other: # Voids 1 1 Weight 64.864 kg Results 10/02/21 05:22 10/02/21 05:22 Cardiac Enzymes 10/01/21 10/01/21 10/01/21 Range/Units 11:16 11:16 15:25 AST 26 (14-36) U/L Troponin I <0.012 <0.012 (0.000-0.034) ng/mL 10/01/21 Range/Units 18:13 AST (14-36) U/L Troponin I <0.012 (0.000-0.034) ng/mL Coagulation 10/01/21 Range/Units 11:16 PT 10.4 (9.0-12.0) sec APTT 23.7 (22.0-30.0) sec CBC 10/01/21 Range/Units 11:16 WBC 8.5 (3.8-10.6) k/uL RBC 4.56 (3.80-5.40) m/uL Hgb 15.1 (11.4-16.0) gm/dL Hct 46.1 H (34.0-46.0) % Plt Count 229 (150-450) k/uL Comprehensive Metabolic Panel 10/01/21 Range/Units 11:16 Sodium 139 (137-145) mmol/L Potassium 4.4 (3.5-5.1) mmol/L Chloride 104 (98-107) mmol/L Carbon Dioxide 26 (22-30) mmol/L BUN 17 (7-17) mg/dL Creatinine 0.82 (0.52-1.04) mg/dL Glucose 137 H (74-99) mg/dL Calcium 9.6 (8.4-10.2) mg/dL AST 26 (14-36) U/L ALT 28 (4-34) U/L Alkaline Phosphatase 126 (38-126) U/L Total Protein 7.2 (6.3-8.2) g/dL Albumin 4.5 (3.5-5.0) g/dL Current Medications Generic Name Dose Route Start Last Admin Trade Name Freq PRN Reason Stop Dose Admin Aspirin 81 mg 10/02/21 09:00 10/02/21 07:43 Aspirin 81 Mg PO 81 mg DAILY DUONG Administration Atorvastatin Calcium 80 mg 10/02/21 09:00 10/02/21 07:43 Atorvastatin 80 Mg Tab PO 80 mg DAILY DUONG Administration Ezetimibe 10 mg 10/02/21 09:00 10/02/21 07:43 Ezetimibe 10 Mg Tab PO 10 mg DAILY DUONG Administration Insulin Aspart 0 unit 10/01/21 17:30 10/02/21 07:48 Insulin Aspart (Novolog) 100 Unit/Ml Vial SQ Not Given ACHS DUONG Protocol Linagliptin 5 mg 10/02/21 09:00 Linagliptin 5 Mg Tablet PO DAILY DUONG Lisinopril 5 mg 10/02/21 09:00 10/02/21 07:43 Lisinopril 5 Mg Tab PO 5 mg DAILY DUONG Administration Naloxone HCl 0.2 mg 10/01/21 13:59 Naloxone 0.4 Mg/Ml 1 Ml Vial IV Q2M PRN Opioid Reversal Non-Formulary Medication 10 mg 10/02/21 09:00 10/02/21 07:40 Dapagliflozin Propanediol [Farxiga] PO Not Given DAILY DUONG Pantoprazole Sodium 40 mg 10/02/21 07:30 10/02/21 07:43 Pantoprazole 40 Mg Tablet PO 40 mg [id number] DUONG Administration Trazodone HCl 50 mg 10/01/21 14:28 10/01/21 21:39 Trazodone Hcl 50 Mg Tab PO 50 mg HS PRN Administration Insomnia Intake and Output 10/01/21 10/02/21 10/02/21 22:59 06:59 14:59 Intake Total 240 Balance 240 Intake: Oral 240 Other: # Voids 1 1 Weight 64.864 kg 10/01/21 11:16 10/01/21 11:16
[2021-10-02 12:06] LABS: Glucose,Whole Blood 210 mg/dL (75-99)
[2021-10-02 14:00] VITALS: PULSE 62; TEMP 97.9
[2021-10-02 14:05] VITALS: BP 103/65
--- NOTE | 2021-10-02 14:27 | P.DS ---
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 Newell with past medical history of diabetes mellitus type 2, hyperlipidemia, left breast cancer status post mastectomy 11 years ago without chemo therapy/radiation therapy. Patient was last hospitalized in 2019 which time she was treated for chest pain and acute coronary syndrome was ruled out, she underwent Persantine stress test which was negative for reversible ischemia. Patient now presents to the emergency center with right shoulder pain that started a couple days ago. Now she has left-sided chest pain worse when she takes a deep breath and reports cough. She denies any syncopal episodes, no lightheadedness or dizziness. No nausea or vomiting. She states her blood sugars have been improved. EKG is sinus rhythm with T-wave abnormalities. She was afebrile, heart rate in the 70s, blood pressure 156/85 and pulse ox 96% on room air. CBC is unremarkable. INR 0.9. D-dimer 0.42. Electrolytes and renal function are normal. Blood sugar 137. Liver function tests normal. Troponin negative. ProBNP 486. Lipase 225. Chest x-ray reveals no acute process. CTA of the chest revealed no pulmonary embolism. 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 A 5 mm or less pulmonary nodules likely benign. Patient is seen today in the emergency center waiting for bed on the observation unit, cardiology consult, echocardiogram. 10/02: She has been seen by cardiology and acute coronary syndrome has been ruled out. She underwent a stress echocardiogram that was negative and patient was cleared by cardiology for discharge home. Patient is not exhibiting any signs of constrictive pericarditis per cardiology. Patient states she still has some discomfort to the left chest and recommended taking Motrin and try heat to the area. Patient has no other associated symptoms. Patient will be discharged today in stable condition. DISCHARGE DIAGNOSES 1. 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 2. Diabetes mellitus type 2. 3. Hyperlipidemia. 4. Hypertension. 5. History of breast cancer, stable. DISCHARGE PLAN Home. Greater than 35 minutes was utilized and coordinating patient's discharge. Impression and plan of care have been directed as dictated by the signing physician. Kiana Love nurse practitioner acting as scribe for signing physician. Patient Condition at Discharge: Stable Plan - Discharge Summary Discharge Rx Participant: No New Discharge Prescriptions: Continue lisinopriL [Zestril] 5 mg PO DAILY sitaGLIPtin PHOS/metFORMIN HCL [Janumet Xr 100-1,000 mg Tablet] 1 tab PO HS Atorvastatin [Lipitor] 80 mg PO DAILY traZODone HCL 50 mg PO HS PRN PRN Reason: Insomnia Dapagliflozin Propanediol [Farxiga] 10 mg PO DAILY Aspirin EC [Ecotrin Low Dose] 81 mg PO DAILY Ezetimibe [Zetia] 10 mg PO DAILY Discharge Medication List lisinopriL [Zestril] 5 mg PO DAILY 03/08/20 [History] Aspirin EC [Ecotrin Low Dose] 81 mg PO DAILY 10/01/21 [History] Atorvastatin [Lipitor] 80 mg PO DAILY 10/01/21 [History] Dapagliflozin Propanediol [Farxiga] 10 mg PO DAILY 10/01/21 [History] Ezetimibe [Zetia] 10 mg PO DAILY 10/01/21 [History] sitaGLIPtin PHOS/metFORMIN HCL [Janumet Xr 100-1,000 mg Tablet] 1 tab PO HS 12/17 [History] traZODone HCL 50 mg PO HS PRN 10/01/21 [History] Follow up Appointment(s)/Referral(s): Heather Newell MD [Primary Care Provider] - 1 Week Discharge Disposition: HOME SELF-CARE
--- NOTE | 2021-10-02 15:44 | ECHOS ---
STRESS ECHOCARDIOGRAM INDICATIONS: Chest pain BASELINE HEART RATE: 60 BASELINE BLOOD PRESSURE: 113/50 MAXIMUM HEART RATE: 145 MAXIMUM BLOOD PRESSURE: 202/192 85% MPHR: 130 100% MPHR: 156 METS: 8.0 MAXIMUM STAGE REACHED: III TOTAL EXERCISE TIME: 6:51 CLINICAL INFORMATION: Baseline rhythm is sinus mechanism, rate of 60, normal axis and intervals, nonspecific ST-T wave changes. Baseline blood pressure 113/50 mmHg. Patient exercised on David protocol for 6 minutes 51 seconds, reaching a peak rate of 145 beats per minute, which is equal to 93% of maximum predicted heart rate. Peak blood pressure 202/92 mmHg. Test was terminated secondary to fatigue. There was no chest pain. Electrocardiograph monitoring revealed [address]-segment depression in inferolateral leads that resolved gradually in recovery. FINDINGS: Baseline echocardiogram revealed normal wall thickness and motion. At peak exercise, there was normal wall motion augmentation with no hypokinesis or dyskinesis. CONCLUSION: 1. Good exercise tolerance with nondiagnostic electrocardiograph stress testing secondary to baseline EKG abnormality. 2. Normal stress echocardiogram with no evidence of stress-induced ischemia. MMODL / IJN: [id number] /
== END 2021-10-02 14:37 | disposition home or self-care (01) ==
LOC: EC 10:44 → 6NMEDSUR 14:02
PROVIDERS: ADMIT Internal Medicine; ATTEND Internal Medicine
DX: R07.89 Other chest pain (principal); E11.9 Type 2 diabetes mellitus without complications; E78.5 Hyperlipidemia, unspecified; I10 Essential (primary) hypertension; Z85.3 Personal history of malignant neoplasm of breast; M25.511 Pain in right shoulder; I31.3 Pericardial effusion (noninflammatory); R91.8 Other nonspecific abnormal finding of lung field; I08.1 Rheumatic disorders of both mitral and tricuspid valves; Z86.14 Personal history of Methicillin resistant Staphylococcus aureus infection; Z87.891 Personal history of nicotine dependence; Z98.82 Breast implant status; Z79.899 Other long term (current) drug therapy; Z79.82 Long term (current) use of aspirin; Z79.84 Long term (current) use of oral hypoglycemic drugs; Z88.8 Allergy status to other drugs, medicaments and biological substances; Z88.5 Allergy status to narcotic agent; Z90.710 Acquired absence of both cervix and uterus; Z90.12 Acquired absence of left breast and nipple; Z83.3 Family history of diabetes mellitus; Z82.49 Family history of ischemic heart disease and other diseases of the circulatory system; Z80.8 Family history of malignant neoplasm of other organs or systems; Z80.3 Family history of malignant neoplasm of breast
CPT/HCPCS: 99285; 36415; 93005; 93306; 93351; 85379; 83880; 80053; 80048; 85652; 83690; 83735; 84484; 85025 ×2; 85610; 85730; 86140; 71046; 71275; G0378 ×2; Q9950 ×2

== ENCOUNTER → 2022-01-23 | Outpatient (CLI) | payer BC ==
[2022-01-23 14:17] LABS: Basophils # (A) 0.03 X 10*3/uL (0.00-0.10); Basophils % (A) 0.4 %; Eosinophils % (A) 3.6 %; HCT 42.3 % (37.2-46.3); HGB 12.9 g/dL (12.0-15.0); Immature Grans, Automated 0.5 %; Lymphocytes # (A) 1.37 X 10*3/uL (0.90-5.00); Lymphocytes % (A) 16.2 %; MCH 29.9 pg (27.0-32.0); MCHC 30.5 g/dL (32.0-37.0); MCV 98.1 fL (80.0-97.0); Mean Platelet Volume 12.9 fL (9.5-12.2); Monocytes % (A) 5.9 %; NRBC Per 100 WBC 0 /100 WBCS (0.0-0.0); Neutrophils % (A) 73.4 %; Platelet Count 229 X 10*3/uL (140-440); RBC 4.31 X 10*6/uL (4.10-5.20); RDW 14.5 % (11.5-14.5); WBC 8.44 X 10*3/uL (4.50-10.00)
[2022-01-23 14:52] LABS: ALT 36 U/L (8-44); AST 33 U/L (13-35); African American GFR (CKD) 78.3 (60.0-200.0); Albumin 4.6 g/dL (3.8-4.9); Albumin/Globulin Ratio 2.19 (1.60-3.17); Alkaline Phosphatase 116 U/L (41-126); BUN/Creat Ratio 16.33 Ratio (12.00-20.00); Blood Urea Nitrogen 14.7 mg/dL (9.0-27.0); Calcium 9.9 mg/dL (8.7-10.3); Chloride 103 mmol/L (96-109); Chol/HDL Ratio 1.87 Ratio; Globulin 2.1 g/dL (1.6-3.3); Glucose 153 mg/dL (70-110); LDL Cholesterol,Calculated 49.9 mg/dL (0.0-131.0); Non-African American GFR(CKD) 67.6 (60.0-200.0); Potassium 4.8 mmol/L (3.5-5.5); Sodium 139 mmol/L (135-145); Total Protein 6.7 g/dL (6.2-8.2)
[2022-01-23 15:06] LABS: Appearance,Urine Clear (Clear); Bilirubin,Urine Negative (Negative); Blood,Urine Negative (Negative); Color,Urine Yellow (Yellow); Ketones,Urine Negative (Negative); Nitrite,Urine Negative (Negative); Specific Gravity,Urine 1.024 (1.001-1.030)
== END | disposition home or self-care (01) ==
LOC: LABWHC1 09:02
PROVIDERS: ATTEND Internal Medicine
DX: I10 Essential (primary) hypertension (principal); E11.9 Type 2 diabetes mellitus without complications; E78.2 Mixed hyperlipidemia
CPT/HCPCS: 36415; 80053; 80061; 81003; 83036; 83735; 84439; 84443; 85025

== ENCOUNTER → 2022-02-05 | Outpatient (CLI) | payer BC | END | disposition home or self-care (01) | LOC: LABWHC1 08:35 | PROVIDERS: ATTEND Internal Medicine | DX: E11.9 Type 2 diabetes mellitus without complications (principal) | CPT/HCPCS: 36415; 83519; 84681 ==

== ENCOUNTER 2022-06-17 08:16 | Day surgery (SDC) | payer BC ==
[2022-06-15 15:05] VITALS: BMI 27.8
[~2022-06-17 08:16] MED LIST: MOXIFLOXACIN HCL 0.5% DROPS 3 ML BTL OP PRN; TETRACAINE 0.5% OPHTH (PF) DROPS 4 ML BTL OP PRN; TIMOLOL 0.5% OPHTH DROPS 5 ML BTL OP PRN
[2022-06-17] MEDS ORDERED: LIDOCAINE 1% (10MG/ML) FOR IV START INTRADERMA PRN (08:32)
[2022-06-17] MEDS ORDERED: LACTATED RINGERS 1,000 ML IV SCH (08:32)
[2022-06-17] MEDS: CYCLOPENTOLATE 1% OPHTH SOLN 2 ML BTL OP PRN ×3 (08:59→09:11)
[2022-06-17 09:02] LABS: Glucose,Whole Blood 102 mg/dL (70-110)
[2022-06-17] MEDS: PHENYLEPHRINE 2.5% OPHTH DRP 2ML OP PRN ×3 (09:02→09:14)
[2022-06-17] MEDS ORDERED: ONDANSETRON 4 MG/2 ML VIAL ONE (09:06)
[2022-06-17] MEDS ORDERED: DEXAMETHASONE SOD PHOSPHATE 4 MG/ML 1 ML VIAL IVP ONE (09:10)
[2022-06-17] MEDS ORDERED: ONDANSETRON 4 MG/2 ML VIAL IVP ONE (09:10)
[2022-06-17 09:14] VITALS: TEMP 97
[2022-06-17] MEDS ORDERED: MIDAZOLAM 2 MG/2 ML VIAL ONE (09:35)
[2022-06-17] MEDS ORDERED: fentaNYL (PF) 50 MCG/ML 2 ML AMP ONE (09:35)
[2022-06-17] MEDS ORDERED: BALANCED SALT IRRIG SOLN COMB2 15 ML IRRIG.SOLN INTRAOCULA ONE (09:40)
[2022-06-17] MEDS ORDERED: HYALURONATE SODIUM INTRAOCULAR 1 EACH SYRINGE (12MG/ML) INTRAOCULA ONE (09:40)
[2022-06-17] MEDS ORDERED: MOXIFLOXACIN HCL 0.5% DROPS 3 ML BTL LEFT EYE ONE (09:41)
[2022-06-17] MEDS ORDERED: LIDOCAINE 1% (PF) 10MG/ML VIAL SQ ONE (09:41)
[2022-06-17] MEDS ORDERED: TIMOLOL 0.5% OPHTH DROPS 5 ML BTL LEFT EYE ONE (09:42)
--- NOTE | 2022-06-17 10:02 | P.OP ---
Date of Procedure: 06/17/22 Preoperative Diagnosis: NS & CS & PSC Postoperative Diagnosis: same Procedure(s) Performed: PIOL, OS Implants: [id number] 22.50 Anesthesia: MAC Surgeon: Geovanny Garcia Pathology: none sent Condition: stable Disposition: same day Indications for Procedure: blurry visoin Operative Findings: no complications
[2022-06-17 10:07] VITALS: RESP 16
[2022-06-17 10:16] LABS: Glucose,Whole Blood 91 mg/dL (70-110)
[2022-06-17 10:19] VITALS: PULSE 74
[2022-06-17 10:36] VITALS: BP 143/80
--- NOTE | 2022-06-17 12:53 | OP ---
OPERATIVE REPORT PREOPERATIVE DIAGNOSES: Nuclear sclerosis, cortical sclerosis posterior subcapsular cataract, left eye. POSTOPERATIVE DIAGNOSES: Nuclear sclerosis, cortical sclerosis posterior subcapsular cataract, left eye. PROCEDURES PERFORMED: Phacoemulsification of cataract and intraocular lens implant of the left eye. ESTIMATED BLOOD LOSS: Zero. SPECIMEN TAKEN: None. NARRATIVE: After obtaining the appropriate consent, the patient was brought to the operating room where the patient was placed under cardiac monitoring and prepped and draped in the usual sterile manner. At the 5 o'clock position, a 15-degree super sharp blade was used to create a paracentesis followed by instillation of 1% Xylocaine MPF 50:50 mix with BSS into the anterior chamber. This was followed by Amvisc viscoelastic to stabilize the anterior chamber. At the 3 o'clock position a self-sealing corneal flap incision was created using 2.8 mm laquita keratome. A cystotome was used to initiate a continuous tear capsulorrhexis which was completed with the Utrata forceps. A Binkhorst cannula was used to hydrodissect the lens nucleus followed by hydrodelineation. Phacoemulsification of the lens was performed utilizing phacochop in 12.04 seconds at 14% power. The remaining cortical material was removed using the irrigation aspiration mode followed by additional 1% Xylocaine MPF into the anterior chamber followed by viscoelastic to stabilize the capsular bag. A Bausch [employer] Lomb MX 60E 22.5 diopters posterior chamber lens was placed into the capsular bag without difficulty. The remaining viscoelastic material was removed from the anterior chamber with the irrigation/aspiration. Balanced salt solution was used to normalize the intraocular pressure. The incision was checked for watertight integrity. The patient then received 2 drops of 0.5% timolol followed by 2 drops Vigamox, was lightly patched and shielded in the usual manner. There were no complications from the procedure. The patient tolerated the procedure well and was returned to recovery in good condition. MMODL / IJN: [id number] /
== END 2022-06-17 10:50 | disposition home or self-care (01) ==
LOC: OR 08:16
PROVIDERS: ATTEND Ophthalmology
DX: H25.812 Combined forms of age-related cataract, left eye (principal)
CPT/HCPCS: 66984; C1780; J2250; J1100; J2405; J3010; J2001

== ENCOUNTER → 2022-07-13 | Outpatient (CLI) | payer MEDICARE, BC ==
--- NOTE | 2022-07-13 13:52 | MM ---
Reason for Exam: Clinical finding. Last mammogram was performed 1 year(s) and 3 month(s) ago. Patient History: Menarche at age 12. First Full-Term at age 22. Left ovary removed at age 47. Right ovary removed at age 47. Hysterectomy at age 47. Postmenopausal. Breast cancer, left, age 49. 2006, Reduction on the Right side. 09/2004, Mastectomy on the Left side. 2004, Core Biopsy on the Left side. Excisional Biopsy on the Right side. Excisional Biopsy on the Right side. Excisional Biopsy on the Right side. Excisional Biopsy on the Left side. Excisional Biopsy on the Left side. 02/28/2009, Benign Excisional Biopsy on the left side. 11/11/2007, Benign Core Biopsy on the right side. 05/20/1999, Benign Excisional Biopsy on the right side. 08/06/2004, Malignant Stereotactic Core Biopsy on the left side. 02/05/2009, Cancelled Left US Needle Biopsy on the left side. 2005, Implant on the left side. Maternal grandmother had breast cancer. Maternal aunt had breast cancer, age 40. Tissue Density: Right: There are scattered fibroglandular densities. Findings: Analyzed By CAD. Chronic nodularity within the right breast. A few benign gliosis calcifications redemonstrated. No new suspicious mass, architectural distortion or calcifications within the right breast. Overall Assessment: Benign, BI-RAD 2 Management: Diagnostic Mammogram of the right breast in 1 year. A clinical breast exam by your physician is recommended on an annual basis and results should be correlated with mammographic findings. This exam should not preclude additional follow-up of suspicious palpable abnormalities. Results were given to the patient verbally at the time of exam. Electronically signed and approved by: Luis Felipe Garibay D.O.
--- NOTE | 2022-07-13 14:09 | USB ---
Reason for Exam: Follow-up at short interval from prior study. Patient History: Menarche at age 12. First Full-Term at age 22. Left ovary removed at age 47. Right ovary removed at age 47. Hysterectomy at age 47. Postmenopausal. Breast cancer, left, age 49. 2006, Reduction on the Right side. 09/2004, Mastectomy on the Left side. 2004, Core Biopsy on the Left side. Excisional Biopsy on the Right side. Excisional Biopsy on the Right side. Excisional Biopsy on the Right side. Excisional Biopsy on the Left side. Excisional Biopsy on the Left side. 02/28/2009, Benign Excisional Biopsy on the left side. 11/11/2007, Benign Core Biopsy on the right side. 05/20/1999, Benign Excisional Biopsy on the right side. 08/06/2004, Malignant Stereotactic Core Biopsy on the left side. 02/05/2009, Cancelled Left US Needle Biopsy on the left side. 2005, Implant on the left side. Maternal grandmother had breast cancer. Maternal aunt had breast cancer, age 40. Technique: Method: Targeted. Prior Study Comparison: 02/15/2015 Screening Mammogram, [facility]. 05/26/2017 Right Diagnostic Mammogram, [facility]. 04/17/2021 Right Diagnostic Mammogram, [facility]. Findings: The axilla of the left breast was scanned. Targeted ultrasound of the left axilla was performed.. Redemonstration of a oval hypoechoic nodule in the subcutis tissues of the left breast measuring 4 x 2 x 3 mm, previously 5 x 3 x 5 mm. Previously seen echogenic focus is not visualized in this lesion on today's exam. This is considered benign and may represent an inclusion cyst. No new suspicious lesions identified. Benign-appearing lymph nodes demonstrated within the left axilla measuring 1.1 x 0.5 x 0.7 cm and 0.8 x 0.6 x 0.7 cm with central fatty hilum.Targeted ultrasound of the left axilla was performed.. Redemonstration of a oval hypoechoic nodule in the subcutis tissues of the left breast measuring 4 x 2 x 3 mm, previously 5 x 3 x 5 mm. Previously seen echogenic focus is not visualized in this lesion on today's exam. No internal color flow or posterior acoustic features identified. This is considered benign and may represent an inclusion cyst. No new suspicious lesions identified. Benign-appearing lymph nodes demonstrated within the left axilla measuring 1.1 x 0.5 x 0.7 cm and 0.8 x 0.6 x 0.7 cm with central fatty hilum. Overall Assessment: Benign, BI-RAD 2 Management: Diagnostic Mammogram of the right breast in 1 year. A clinical breast exam by your physician is recommended on an annual basis and results should be correlated with mammographic findings. This exam should not preclude additional follow-up of suspicious palpable abnormalities. Results were given to the patient verbally at the time of exam. Electronically signed and approved by: Luis Felipe Garibay D.O.
== END | disposition home or self-care (01) ==
LOC: RADMAMWWP 13:09
PROVIDERS: ATTEND Internal Medicine
DX: R92.2 Inconclusive mammogram (principal); Z78.0 Asymptomatic menopausal state; Z80.3 Family history of malignant neoplasm of breast; Z85.3 Personal history of malignant neoplasm of breast; Z98.890 Other specified postprocedural states
CPT/HCPCS: 77065; 76642; G0279; 77061

== ENCOUNTER → 2023-06-09 | Day surgery (SDC) | payer BC, MEDICARE ==
[~2023-06-09] MED LIST changes: +BALANCED SALT IRRIG SOLN COMB2 15 ML IRRIG.SOLN INTRAOCULA ONE; +DEXAMETHASONE SOD PHOSPHATE 4 MG/ML 1 ML VIAL IVP ONE; +EPINEPHrine (PF) 0.3 ML in BALANCED SALT IRRIG SOLN COMB2 500 ML IRRIGATION ONE; +HYALURONATE SODIUM INTRAOCULAR 1 EACH SYRINGE (12MG/ML) INTRAOCULA ONE; +LACTATED RINGERS 1,000 ML IV SCH; +LIDOCAINE 1% (PF) 10MG/ML VIAL INTRAARTIC ONE; +MIDAZOLAM 2 MG/2 ML VIAL ONE; -MOXIFLOXACIN HCL 0.5% DROPS 3 ML BTL OP PRN; +ONDANSETRON 4 MG/2 ML VIAL IVP ONE; +ONDANSETRON 4 MG/2 ML VIAL ONE; -TIMOLOL 0.5% OPHTH DROPS 5 ML BTL OP PRN; +fentaNYL (PF) 50 MCG/ML 2 ML AMP ONE
[2023-06-09] MEDS: PHENYLEPHRINE 2.5% OPHTH DRP 2ML OP PRN ×5 (06:40→07:00)
[2023-06-09] MEDS: CYCLOPENTOLATE 1% OPHTH SOLN 2 ML BTL OP PRN ×5 (06:43→07:08)
[2023-06-09 07:03] LABS: Glucose,Whole Blood 113 mg/dL (70-110)
[2023-06-09 07:13] VITALS: TEMP 97
[2023-06-09] MEDS: TIMOLOL 0.5% OPHTH DROPS 5 ML BTL OP PRN ×2 (07:36→07:48)
[2023-06-09] MEDS: MOXIFLOXACIN HCL 0.5% DROPS 3 ML BTL OP PRN ×2 (07:36→07:48)
--- NOTE | 2023-06-09 07:57 | P.OP ---
Date of Procedure: 06/09/23 Preoperative Diagnosis: NS & CS & PSC Postoperative Diagnosis: same Procedure(s) Performed: PIOL, OD Implants: [id number] 22.50 Anesthesia: MAC Surgeon: Geovanny Garcia Pathology: none sent Condition: stable Disposition: same day Indications for Procedure: blurry vision Operative Findings: no complications
[2023-06-09 08:05] VITALS: RESP 12
[2023-06-09 08:11] LABS: Glucose,Whole Blood 124 mg/dL (70-110)
[2023-06-09 08:55] VITALS: BP 120/72; PULSE 64
--- NOTE | 2023-06-09 13:26 | OP ---
OPERATIVE REPORT DATE OF SERVICE : 06/09/2023 PREOPERATIVE DIAGNOSES: Nuclear sclerosis, cortical sclerosis, and posterior subcapsular cataract, right eye. POSTOPERATIVE DIAGNOSES: Nuclear sclerosis, cortical sclerosis, and posterior subcapsular cataract, right eye. OPERATION: Phacoemulsification of cataract and interocular lens implant, right eye. ESTIMATED BLOOD LOSS: Zero. SPECIMEN TAKEN: None. NARRATIVE: After obtaining the appropriate consent, the patient was brought to the operating room where the patient was placed under cardiac monitoring and prepped and draped in the usual sterile manner. At the 11 o'clock position, a 15-degree super sharp blade was used to create a paracentesis followed by instillation of 1% Xylocaine MPF 50:50 mix with BSS into the anterior chamber. This was followed by Amvisc viscoelastic to stabilize the anterior chamber. At the 9 o'clock position a self-sealing corneal flap incision was created using 2.8 mm laquita keratome. A cystotome was used to initiate a continuous tear capsulorrhexis which was completed with the Utrata forceps. A Binkhorst cannula was used to hydrodissect the lens nucleus followed by hydrodelineation. Phacoemulsification of the lens was performed utilizing phacochop in 14.05 seconds at 10.9% power. The remaining cortical material was removed using the irrigation aspiration mode followed by additional 1% Xylocaine MPF into the anterior chamber followed by viscoelastic to stabilize the capsular bag. A [employer]ch [employer] Lomb MX60E 22.6 diopters posterior chamber lens was placed into the capsular bag without difficulty. The remaining viscoelastic material was removed from the anterior chamber with the irrigation/aspiration. Balanced salt solution was used to normalize the intraocular pressure. The incision was checked for watertight integrity. The patient then received 2 drops of 0.5% timolol followed by 2 drops Vigamox, was lightly patched and shielded in the usual manner. There were no complications from the procedure. The patient tolerated the procedure well and was returned to recovery in good condition. MMODL / IJN: [id number] /
== END | disposition home or self-care (01) ==
LOC: OR 06:30
PROVIDERS: ATTEND Ophthalmology
DX: H25.011 Cortical age-related cataract, right eye (principal); I10 Essential (primary) hypertension; E11.9 Type 2 diabetes mellitus without complications; K21.9 Gastro-esophageal reflux disease without esophagitis; Z79.84 Long term (current) use of oral hypoglycemic drugs; Z79.899 Other long term (current) drug therapy
CPT/HCPCS: 66984; C1780; J2250; J1100; J2405; J0171; J3010; J2001

== ENCOUNTER → 2024-06-23 | Outpatient (CLI) | payer MEDICARE ==
--- NOTE | 2024-06-23 13:38 | MM ---
Reason for Exam: Hx of breast cancer, mastectomy. Last mammogram was performed 1 year(s) and 11 month(s) ago. Patient History: Menarche at age 12. First Full-Term at age 22. Left ovary removed at age 47. Right ovary removed at age 47. Hysterectomy at age 47. Postmenopausal. Breast cancer, left, age 49. 2006, Reduction on the Right side. 09/2004, Mastectomy on the Left side. 2004, Core Biopsy on the Left side. Excisional Biopsy on the Right side. Excisional Biopsy on the Right side. Excisional Biopsy on the Right side. Excisional Biopsy on the Left side. Excisional Biopsy on the Left side. 02/28/2009, Benign Excisional Biopsy on the left side. 11/11/2007, Benign Core Biopsy on the right side. 05/20/1999, Benign Excisional Biopsy on the right side. 08/06/2004, Malignant Stereotactic Core Biopsy on the left side. 02/05/2009, Cancelled Left US Needle Biopsy on the left side. 2005, Implant on the left side. Maternal grandmother had breast cancer. Maternal aunt had breast cancer, age 40. Prior Study Comparison: 05/26/2017 Right Diagnostic Mammogram, [facility]. 04/17/2021 Right Diagnostic Mammogram, [facility]. 07/13/2022 Right MG 3D diag mammo w/cad RT, [facility]. Tissue Density: Right: There are scattered areas of fibroglandular density. Findings: Analyzed By CAD. Unchanged benign oil cyst and round calcifications. No significant change from prior exams. Overall Assessment: Benign, BI-RAD 2 Management: Screening Mammogram of the right breast in 1 year. Results were given to the patient verbally at the time of exam. Patient should continue monthly self-breast exams. A clinical breast exam by your physician is recommended on an annual basis. This exam should not preclude additional follow-up of suspicious palpable abnormalities. [facility], , 06/23/2024 1:34 PM. Electronically signed and approved by: Anibal Gan M.D. Radiologist
--- NOTE | 2024-06-23 15:16 | BD ---
EXAMINATION TYPE: Axial Bone Density DATE OF EXAM: 06/23/2024 CLINICAL HISTORY: 69 years old Female. ICD-10 CODE: M85.88 OSTAOPENIA , Additional History: Height: 5 ft Weight: 142 FRAX RISK QUESTIONS: Alcohol (3 or more units per day): no Family History (Parent hip fracture): no Glucocorticoids (More than 3mos): no (Ex: prednisone, prednisolone, methylprednisolone, dexamethasone, and hydrocortisone). History of Fracture in Adulthood: no Secondary Osteoporosis: 1. Type 1 Diabetes: type 2 2. Hyperthyroidism: no 3. Menopause before 45: yes 4. Malnutrition: no 5. Chronic liver disease: no Rheumatoid Arthritis: no Current Tobacco Use: no RISK FACTORS HISTORY OF: Surgery to Spine/Hip(right/left)/Wrist (right/left): wrist When: 30 years ago MEDICATIONS: Thyroid Medications: none Osteoporosis Medications: none EXAM MEASUREMENTS: Bone mineral densitometry was performed using the Bl[employer] for iPhone and Android System. Bone mineral density as measured about the Lumbar spine is: ----- L1-L4(G/cm2): 0.937 T Score Values are as follows: ----- L1: -2.4 ----- L2: -2.7 ----- L3: -1.4 ----- L4: -1.9 ----- L1-L4: -2.0 Z Score Values are as follows: ----- L1: -0.8 ----- L2: -1.0 ----- L3: 0.2 ----- L4: -0.3 ----- L1-L4: -0.4 Bone mineral density has: decreased -12.1 % since study of: 2004 Bone mineral density about the R hip (g/cm2): 0.818 Bone mineral density about the L hip (g/cm2): 0.821 T Score values are as follows: -----R Neck: -1.6 -----L Neck: -1.6 -----R Total: -0.8 -----L Total: -0.9 Z Score values are as follows: -----R Neck: 0.0 -----L Neck: 0.0 -----R Total: 0.5 -----L Total: 0.4 Bone mineral density has: decreased -22.3 % since study of: 2004 FRAX%s: The graph provided illustrates a 9.5 % chance for a major osteoporotic fx and a 1.2 % chance for the hips probability for fx in 10 years time. IMPRESSION: Osteopenia (T Score between -2.5 and -1). There is slightly increased risk of fracture and the patient may be considered for treatment. Re-Screen 2-5 years. NOTE: T-SCORE=SD OF THE YOUNG ADULT MEAN. [facility], , 06/23/2024 3:14 PM
--- NOTE | 2024-06-23 15:47 | US ---
EXAMINATION TYPE: US carotid duplex BILAT DATE OF EXAM: 06/23/2024 COMPARISON: NONE CLINICAL INDICATION: Female, 69 years old with history of I65.23 CAROTID; mother had h/o endarterect heather and stroke Additional History: .... TECHNIQUE: Grayscale, color Doppler and spectral Doppler evaluation of the bilateral carotid systems and vertebral arteries. Indirect Doppler criteria was utilized. FINDINGS: EXAM MEASUREMENTS: RIGHT: Peak Systolic Velocity (PSV) cm/sec ----- Right CCA: 85.3 ----- Right ICA: 98.2 ----- Right ECA: 168.0 ICA/CCA ratio: 1.1 RIGHT: End Diastole cm/sec ----- Right CCA: 16.4 ----- Right ICA: 21.1 ----- Right ECA: 12.3 LEFT: Peak Systolic Velocity (PSV) cm/sec ----- Left CCA: 88.4 ----- Left ICA: 88.1 ----- Left ECA: 158.0 ICA/CCA ratio: 1.0 LEFT: End Diastole cm/sec ----- Left CCA: 17.8 ----- Left ICA: 22.0 ----- Left ECA: 0.0 VERTEBRALS (direction of flow): Right Vertebral: Antegrade Left Vertebral: Antegrade Rhythm: Normal INDUSTRIAL ENERGY ENGINEER NOTES: mild homogeneous plaque seen, no stenosis seen Color Doppler imaging shows patency with blood flow throughout the carotid artery. Spectral waveforms are within normal limits. IMPRESSION: Right: No hemodynamically significant stenosis. Left: No hemodynamically significant stenosis. Criteria for Assigning % of Stenosis / Diameter reduction (Estimation based on the indirect measurements of the internal carotid artery velocities (ICA PSV). 1. Normal (no stenosis)=ICA PSV < 125 cm/s: ratio < 2.0: ICA EDV<40 cm/s. 2. Less than 50% stenosis=ICA PSV < 125 cm/s: ratio < 2.0: ICA EDV<40 cm/s. 3. 50 to 69% stenosis=ICA PSV of 125 to 230 cm/s: ration 2.0 ? 4.0: ICA EDV 40-100 cm/s. 4. Greater than 70% stenosis to near occlusion= ICA PSV > 230 cm/s: ratio > 4.0: ICA EDV > 100 cm/s. 5. Near occlusion= ICA PSV velocities may be low or undetectable: variable ratio and ICA EDV. 6. Total occlusion=unable to detect flow. [facility], , 06/23/2024 3:44 PM
--- NOTE | 2024-06-23 16:30 | CA ---
Transthoracic Echo Report Name: Palak Jara Age: 69 Gender: F : 1955 Exam Date: 06/23/2024 15:35 Exam Location: [facility] Ht (in): 60 Wt (lb): 142 Ordering Physician: Heather Newell MD Attending/Referring Phys: Dust Mill Operator Marleny Zamora RDCS Procedure CPT: Indications: I34.0 nonrheumatic mitral valve regurgitation Cardiac Hx: Technical Quality: Fair Contrast 1: Total Dose (mL): Contrast 2: Total Dose (mL): MEASUREMENTS (Male / Female) Normal Values 2D ECHO LV Diastolic Diameter PLAX 3.9 cm 4.2 - 5.9 / 3.9 - 5.3 cm IVS Diastolic Thickness 0.8 cm 0.6 - 1.0 / 0.6 - 0.9 cm LVPW Diastolic Thickness 0.9 cm 0.6 - 1.0 / 0.6 - 0.9 cm LV Relative Wall Thickness 0.4 LVOT Diameter 2.0 cm LV Diastolic Volume MOD BP 55.9 cm??? 67 - 155 / 56 - 104 cm??? LV Systolic Volume MOD BP 23.2 cm??? 22 - 58 / 19 - 49 cm??? LV Ejection Fraction MOD BP 58.4 % >= 55 % LV Cardiac Index MOD BP 1347.0 cm???/min???m??? LV Diastolic Volume MOD 4C 53.4 cm??? LV Systolic Volume MOD 4C 21.4 cm??? LV Ejection Fraction MOD 4C 59.9 % LV Cardiac Index MOD 4C 1320.1 cm???/min???m??? LV Diastolic Length 4C 7.8 cm LV Systolic Length 4C 6.4 cm LV Diastolic Volume MOD 2C 57.7 cm??? LV Systolic Volume MOD 2C 24.2 cm??? LV Ejection Fraction MOD 2C 58.0 % LV Cardiac Index MOD 2C 1380.1 cm???/min???m??? LV Diastolic Length 2C 7.7 cm LV Systolic Length 2C 6.7 cm LA Volume 33.1 cm??? 18 - 58 / 22 - 52 cm??? LA Volume Index 19.8 cm???/m??? 16 - 28 cm???/m??? Ascending Aorta Diameter 3.6 cm DOPPLER AV Peak Velocity 104.5 cm/s AV Peak Gradient 4.4 mmHg AV Mean Velocity 72.9 cm/s AV Mean Gradient 2.3 mmHg AV Velocity Time Integral 23.6 cm LVOT Peak Velocity 116.2 cm/s LVOT Peak Gradient 5.4 mmHg LVOT Velocity Time Integral 25.9 cm LVOT Stroke Volume 78.7 cm??? LVOT Stroke Volume Index 48.8 ml/m??? LVOT Cardiac Index 3250.1 cm???/min???m??? AV Area Cont Eq vti 3.3 cm??? AV Area Cont Eq pk 3.4 cm??? MV Area PHT 4.3 cm??? Mitral E Point Velocity 68.0 cm/s Mitral A Point Velocity 50.7 cm/s Mitral E to A Ratio 1.3 MV Deceleration Time 176.5 ms FINDINGS Left Ventricle Left ventricular ejection fraction is estimated at 55-60 %. Left ventricular cavity size normal. Left ventricular wall thickness normal. No obvious regional wall motion abnormalities. Right Ventricle Right ventricle not well visualized. Unable to estimate the right ventricular systolic pressure. Right Atrium Normal right atrial size. Left Atrium Normal left atrial size. Mitral Valve Structurally normal mitral valve. No mitral stenosis, regurgitation or prolapse. Aortic Valve Aortic valve not well visualized. No aortic valve stenosis or regurgitation. Tricuspid Valve Structurally normal tricuspid valve. No tricuspid stenosis, regurgitation or prolapse. Pulmonic Valve Pulmonic valve not well visualized. Pericardium No pericardial effusion. Aorta Normal size aortic root and proximal ascending aorta. CONCLUSIONS Normal LV function Previewed by: Dr. Rigoberto Leonardo MD (Electronically Signed) Final Date: 23 June 2024 16:29
== END | disposition home or self-care (01) ==
LOC: RADMAMWWP 13:17
PROVIDERS: ATTEND Internal Medicine
DX: C50.912 Malignant neoplasm of unspecified site of left female breast (principal); R92.323 Mammographic fibroglandular density, bilateral breasts; I34.0 Nonrheumatic mitral (valve) insufficiency; I65.23 Occlusion and stenosis of bilateral carotid arteries; M85.89 Other specified disorders of bone density and structure, multiple sites; Z80.3 Family history of malignant neoplasm of breast; Z85.3 Personal history of malignant neoplasm of breast
CPT/HCPCS: 93306; 77080; 77065; 93880; G0279; 77061

== ENCOUNTER → 2024-09-15 | Outpatient (CLI) | payer MEDICARE ==
--- NOTE | 2024-09-15 11:52 | US ---
EXAMINATION TYPE: US arterial LE single level DATE OF EXAM: 09/15/2024 11:18 AM COMPARISONS: None. CLINICAL INDICATION: Female, 69 years old with history of I73.9 PAD; Pt's main complaint is left leg, pt experiences numbness & coldness in left toes TECHNIQUE: Systolic pressures were taken of the upper and lower extremity arteries with ankle-brachia l indices and toe brachial indices calculated bilaterally. History of: Smoker: previous Hypertension: no Diabetic: yes Hyperlipidemia: yes TIA/CVA: no Previous Vascular Surgery: no CAD: no PR: no Vascular Ulcers: no Claudication: yes, both, mainly left Gangrene: no FINDINGS: Doppler Waveforms: Right: Biphasic Left: Biphasic Brachial Artery systolic pressure: Right: 108 Left: 112 Posterior Tibial artery systolic pressure: Right: 110 Left: 137 Dorsalis Pedis artery systolic pressure: Right: 119 Left: 128 Toe artery systolic pressure: Right: 55 Left: 49 Ankle-Brachial Indices: Right: 1.1 Left: 1.2 Toe Brachial Indices: Right: 0.5 Left: 0.4 (Normal > 0.6; Mild 0.35 - 0.59, Moderate 0.12 - 0.34, Severe <0.12) IMPRESSION: PEPE: Right: Normal 0.9 - 1.4, Recommendation: None Left: Normal 0.9 - 1.4, Recommendation: None [facility], , 09/15/2024 11:49 AM
== END | disposition home or self-care (01) ==
LOC: RADUSWWP 09:50
PROVIDERS: ATTEND Internal Medicine
DX: I73.9 Peripheral vascular disease, unspecified (principal)
CPT/HCPCS: 93922

== ENCOUNTER → 2024-11-03 | Outpatient (CLI) | payer MEDICARE ==
--- NOTE | 2024-11-03 09:24 | XR ---
EXAMINATION TYPE: XR tibia fibula RT, XR knee complete RT DATE OF EXAM: 11/03/2024 CLINICAL INDICATION: Female, 69 years old with history of S81.001A UNSPECIFIED OPEN WOUND, RIGHT KNEE , INITI, TECHNIQUE: Two views of the right leg are obtained. 3 views right knee. COMPARISON: None. FINDINGS: There is no acute fracture or dislocation seen in the right knee, tibia, or fibula. Mild t o moderate tricompartment joint space loss in the right knee. The overlying soft tissue appears unre markable. IMPRESSION: There is no acute fracture or dislocation seen in the right knee or leg. [facility], , 11/03/2024 9:22 AM
== END | disposition home or self-care (01) ==
LOC: RADXRMAIN 08:44
PROVIDERS: ATTEND Internal Medicine
DX: S81.001A Unspecified open wound, right knee, initial encounter (principal)

== ENCOUNTER → 2025-01-17 | Outpatient (CLI) | payer MEDICARE ==
--- NOTE | 2025-01-25 11:02 | BMR ---
EXAM DATE: 01/17/2025 EXAM DESCRIPTION: MRI-Breast Bilat (W/O Contrast) INDICATION: Prior history of left breast carcinoma post mastectomy with implant reconstruction. Prior history of right breast reduction. Patient presented with palpable finding in the reconstructed left breast COMPARISON: Prior breast MRI dated 09/16/2009 CONTRAST: None. TECHNIQUE: Multi sequence multiplanar MR imaging of the breasts was obtained. Subsequently, after the uneventful intravenous administration of Gadavist contrast material, 6 dynamic sequences were then obtained. Post processing was performed utilizing a [employer] CAD workstation. Sub optimal quality of images due to in adequate contrast bolus. FINDINGS: The right breast is composed of scattered fibroglandular tissue. There is absence of intraparenchymal contrast enhancement of either breast There is no axillary or internal mammary lymphadenopathy. Lymph nodes with benign morphology are present in the axillary regions. T2 weighted images demonstrated no dominant cystic lesion in the right breast. Intact left breast silicone implant. No evidence of intra or extracapsular rupture. Trace amount of fluid in the pleural spaces likely physiological. Several well-circumscribed foci of peripheral signal voids with internal fat signal in the reconstructed left breast anterior to the left breast implant the dominant 1 measures 0.8 x 0.6 x 0.7 cm (1,001 image 68 and series 401, image 148) suggestive of focal calcifications likely corresponding to the areas of clinical concern. Suboptimal quality of post contrast images due to in adequate/incorrect bolus timing. Minimal contrast is present in either breast. No discrete mass lesion in the right breast. There is no abnormal signal or enhancement in the chest wall or subcutaneous tissue. IMPRESSION: 1. Suboptimal quality of images due to in adequate/incorrect bolus timing. No definite contrast enhancement identified in the right breast parenchyma and the reconstructed left breast. Given this limitation, there is no discrete soft tissue mass in either breast. 2. Several scattered areas of peripheral signal voids with internal fat signal in the reconstructed left breast anterior to the breast implant likely suggestive of resolving/part calcified fat necrosis. Intact left breast silicone implant. 3. No axillary or internal mammary lymphadenopathy. MTDD
== END | disposition home or self-care (01) ==
LOC: RADMRIMAIN 08:29
PROVIDERS: ATTEND Surgery
DX: T85.43XA Leakage of breast prosthesis and implant, initial encounter (principal); Z98.82 Breast implant status; Z90.12 Acquired absence of left breast and nipple; Z85.3 Personal history of malignant neoplasm of breast
CPT/HCPCS: 77047